=== PATIENT | female | born 1985 | race Caucasian/White ===

== ENCOUNTER → 2023-08-17 10:51 | Outpatient (CLI) | payer OTHER, MEDICAID, SELFPAY | PROVIDERS: PCP Nurse Practitioner Obstetrics & Gynecology; Visit Provider Obstetrics & Gynecology | DX: L73.1 Pseudofolliculitis barbae (principal) | CPT/HCPCS: 87070; 87077; 87147; 87186; 87205 ==

== ENCOUNTER → 2023-10-10 16:20 | Outpatient (CLI) | payer OTHER, MEDICAID, SELFPAY ==
--- NOTE | 2023-10-10 16:22 | DI.US.S_ITS ---
PROCEDURE: US OB >= 14 WEEKS FETUS INDICATIONS: ANATOMY SCAN OUTSIDE/PRIOR DATING DATA: Last menstrual period (LMP): 05/11/2023. LMP-based estimated date of delivery (HARSHAL): 02/15/2024. The calculations are made using the HARSHAL of 02/15/2024. TECHNIQUE: Real-time scanning was performed of the fetus, with image documentation and biometric measurements. Endovaginal scanning: Not performed COMPARISON: [facility], , OB < 14 WEEKS, 08/07/2023, 11:24. FINDINGS: General: A single living intrauterine gestation is present. Presentation: Transverse. Placenta: Placental position is posterior , without previa. Amniotic fluid index: 18.3 cm, normal range is 5-24 cm. Single deepest vertical pocket is 6.9 cm. heart rate: 131 beats per minute. Maternal cervical canal: 7.5 cm long. Normal lower limit is 2.5 cm. biometrics: Biparietal diameter: 5.4 cm, 22 weeks 3 days Head circumference: 20.3 cm, 22 weeks 3 days Abdominal circumference: 18.4 cm, 23 weeks 1 day Femur length: 3.9 cm, 22 weeks 3 days Clinically estimated gestational age: 21 weeks 5 days Composite gestational age from present scan: 22 weeks 4 days Estimated weight and percentile: 534 g, 92nd percentile Anatomic survey: Neuro: Ventricles are non-dilated at less than 10 mm. Cisterna magna is normal at 3-11 mm. Cerebellum is normal in size and morphology. Nuchal skin fold: Normal at less than 6 mm between 14-21 weeks gestational age. Face: Nose and lips, facial profile are normal. Spine: No evidence for spina bifida. Heart: 4-chambered heart is present, with normal ventricular outflow tracts. Diaphragm: Diaphragm is intact. Stomach: Left-sided stomach is present. Kidneys: No hydronephrosis. Normal is less than 5 mm in 2nd trimester, less than 7 mm in 3rd trimester. Cord: 3-vessel cord has orthotopic insertion. Bladder: Normal in size. Extremities: All 4 extremities identified. IMPRESSION: 1. Single live intrauterine consistent with 22 weeks and 4 days. 2. Normal anatomic survey. 3. Estimated weight is at the 92nd percentile. Consider follow-up exam to exclude developing macrosomia. We strive to produce accurate, complete, and clear reports of imaging services. To assist us in improving patient care, this report was composed using standard report templates and voice recognition software. Therefore, it may contain abnormal punctuation, insertions and/or omissions. Occasional wrong-word or sound-alike substitutions may occur. Though we review the report and make efforts to correct it, we do recommend that the report be read carefully in proper context to recognize any text inaccuracies. Dictated by: Nasir Russell M.D. on 10/11/2023 at 10:22 Approved by: Nasir Russell M.D. on 10/11/2023 at 10:30
== END ==
PROVIDERS: PCP Nurse Practitioner Obstetrics & Gynecology; Referring Provider Advanced Practice Midwife; Visit Provider Advanced Practice Midwife
DX: Z34.02 Encounter for supervision of normal first pregnancy, second trimester (principal); Z3A.22 22 weeks gestation of pregnancy
CPT/HCPCS: 76811

== ENCOUNTER → 2023-11-02 07:57 | Outpatient (CLI) | payer OTHER, MEDICAID, SELFPAY ==
[2023-11-02 09:18] LABS: Hemoglobin A1C% w Est Avg Glu 4.9 % (4.0-6.0)
[2023-11-02 10:16] LABS: Glucose 1 Hour 132 mg/dL (70-170)
[2023-11-02 10:18] LABS: Glucose Tol Interpretation INTERPRETATION
[2023-11-02 11:07] LABS: Glucose 2 Hour 140 mg/dL (70-140)
[2023-11-02 13:56] LABS: Glucose Fasting 96 mg/dL (70-100)
== END ==
PROVIDERS: PCP Nurse Practitioner Obstetrics & Gynecology; Referring Provider Advanced Practice Midwife; Visit Provider Advanced Practice Midwife
DX: O13.9 Gestational [pregnancy-induced] hypertension without significant proteinuria, unspecified trimester (principal); F31.9 Bipolar disorder, unspecified; F90.2 Attention-deficit hyperactivity disorder, combined type; O99.810 Abnormal glucose complicating pregnancy
CPT/HCPCS: 36415; 82951; 82952; 83036

== ENCOUNTER → 2023-11-26 10:00 | Outpatient (CLI) | payer OTHER, MEDICAID, SELFPAY ==
[2023-11-26 13:27] LABS: Cholesterol 312 mg/dL (140-199); HDL Cholesterol 70 mg/dL (40-60); LDL Cholesterol Calculated 203 mg/dL (<100); Triglycerides 197 mg/dL (35-150)
== END ==
PROVIDERS: Referring Provider Advanced Practice Midwife; Visit Provider Advanced Practice Midwife
DX: O99.810 Abnormal glucose complicating pregnancy (principal); O13.9 Gestational [pregnancy-induced] hypertension without significant proteinuria, unspecified trimester; F31.0 Bipolar disorder, current episode hypomanic; F90.2 Attention-deficit hyperactivity disorder, combined type; E03.9 Hypothyroidism, unspecified
CPT/HCPCS: 36415; 80061; 80175

== ENCOUNTER 2024-01-02 12:46 | Outpatient (CLI) | payer OTHER, MEDICAID, SELFPAY ==
--- NOTE | 2024-01-02 13:21 | PM.OBTRLD ---
Visit Information Visit Information Date of evaluation: 01/02/24 Primary OB Provider: Esther Rao Comments/Additional reasons for admission: 38yo at 33w5d here for NST for decreased movement. No contractions, LOF, vaginal bleeding. complicated by bipolar disorder, GDMA2 on insulin. [facility] Medical History (Updated 01/02/24 @ 13:23 by Esther Rao MD) Psychiatric hospitalization Hypertension (~2021) Hemorrhoid Surgical History (Updated 12/27/23 @ 13:28 by Hattie Rosenbaum, RN) Anesthesia History of colonoscopy Family History (Updated 12/27/23 @ 13:31 by Hattie Rosenbaum, RN) Mother Hypertension Pre-diabetes Skin cancer Father Hypertension Skin cancer Alcoholism Grandfather Liver cancer Heavy smoker Grandmother COPD (chronic obstructive pulmonary disease) Heavy smoker Grandfather No problems noted. 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[employer]) current occupational exposures/hazards: No special dwain needs: No travel history: over 6 months ago seatbelt use: always helmet use: No (counseled on this matter) water heater temp set < 120 deg: Yes working smoke detector in home: Yes fire extinguisher in home: Yes carbon monox detector in home: Yes firearms in home: Yes firearms unloaded and locked: Yes do you feel safe at home: Yes Smoking Status: Former smoker (quit age 30 when she quit drinking) Tobacco: How many years used: 10 second hand exposure: No alcohol intake: former (sober since 2016) substance use type: does not use during the past year weight has: other (gained ~90 lb w/ last , lost 50 prior to this one) well-balanced diet: daily or most days daily servings fruits/ve-4 caffeine: Yes (single K-cup coffee in AM) Type(s) of exercise: walking Evaluation Evaluation Baseline heart rate: 120 Variability: Moderate (11-25) monitor accelerations: Present Monitor Decelerations: Absent Category of Tracing: Reactive Diagnosis, Plan/Disposition Final Diagnosis (1) Decreased movement: Status: Acute Plan/Disposition Plan: 38yo at 33w5d here for NST for decreased movement. NST reactive. Stable for d/c home. Will f/u for twice weekly NSTs due to GDMA2. OB Disposition: home
== END 2024-01-02 13:25 | disposition home or self-care (01) ==
LOC: LABOR 13:01 → OB 01-03 08:16
PROVIDERS: Referring Provider Family Medicine; Visit Provider Family Medicine
DX: O36.8130 Decreased fetal movements, third trimester, not applicable or unspecified (principal); O24.414 Gestational diabetes mellitus in pregnancy, insulin controlled; O99.343 Other mental disorders complicating pregnancy, third trimester; F31.9 Bipolar disorder, unspecified; Z3A.33 33 weeks gestation of pregnancy
CPT/HCPCS: 59025; G0378; G0379

== ENCOUNTER → 2024-01-04 14:37 | Outpatient (CLI) | payer OTHER, MEDICAID, SELFPAY ==
--- NOTE | 2024-01-04 14:38 | DI.US.S_ITS ---
PROCEDURE: US OB LIMITED INDICATIONS: EFW OUTSIDE/PRIOR DATING DATA: Last menstrual period (LMP): 05/11/2023 LMP-based estimated date of delivery (HARSHAL): 02/15/2024 Working HARSHAL is 02/15/2024 TECHNIQUE: Real-time scanning was performed of the fetus, with image documentation and biometric measurements. Endovaginal scanning: Not performed COMPARISON: [facility], OB >= 14 WEEKS FETUS, 10/10/2023, 16:37. FINDINGS: General: A single living intrauterine gestation is present. Presentation: Vertex Placenta: Placental position is posterior right, without previa. Amniotic fluid index: 22.5 cm, normal range is 5-24 cm. Single deepest vertical pocket is 7.3 cm. heart rate: 132 beats per minute. Maternal cervical canal: Not visualized. biometrics: Biparietal diameter: 8.8 cm, 35 weeks 5 days Head circumference: 32.1 cm, 36 weeks 1 day Abdominal circumference: 31.4 cm, 35 weeks 2 days Femur length: 6.8 cm, 34 weeks 6 days Clinically estimated gestational age: 34 weeks 0 days Composite gestational age from present scan: 35 weeks 4 days Estimated weight and percentile: 2657 g, 82nd percentile IMPRESSION: 1. Single live intrauterine with interval growth. 2. Estimated weight is at the 82nd percentile for gestational age. 3. Amniotic fluid index is at the upper limits of normal at 22.5 cm. Approved by: Richie Ramirez M.D. on 01/04/2024 at 20:16
== END ==
PROVIDERS: Referring Provider Family Medicine; Visit Provider Family Medicine
DX: O24.419 Gestational diabetes mellitus in pregnancy, unspecified control (principal); O09.293 Supervision of pregnancy with other poor reproductive or obstetric history, third trimester; Z3A.35 35 weeks gestation of pregnancy
CPT/HCPCS: 76815

== ENCOUNTER 2024-01-07 10:46 | Outpatient (CLI) | payer OTHER, MEDICAID, SELFPAY | END 2024-01-07 11:40 | disposition home or self-care (01) | LOC: LABOR 11:00 → OB 01-09 10:28 | PROVIDERS: Referring Provider Family Medicine; Visit Provider Family Medicine | DX: O26.893 Other specified pregnancy related conditions, third trimester (principal); R06.02 Shortness of breath; O09.523 Supervision of elderly multigravida, third trimester; O24.913 Unspecified diabetes mellitus in pregnancy, third trimester; Z79.4 Long term (current) use of insulin; Z3A.34 34 weeks gestation of pregnancy | CPT/HCPCS: 59025; G0378; G0379 ==

== ENCOUNTER 2024-01-10 12:35 | Outpatient (CLI) | payer OTHER, MEDICAID, SELFPAY | END 2024-01-10 13:30 | disposition home or self-care (01) | LOC: LABOR 13:32 → OB 01-17 09:57 | PROVIDERS: Referring Provider Family Medicine; Visit Provider Family Medicine | DX: O09.523 Supervision of elderly multigravida, third trimester (principal); O24.913 Unspecified diabetes mellitus in pregnancy, third trimester; Z79.4 Long term (current) use of insulin; O99.513 Diseases of the respiratory system complicating pregnancy, third trimester; J45.909 Unspecified asthma, uncomplicated; Z3A.34 34 weeks gestation of pregnancy; O09.293 Supervision of pregnancy with other poor reproductive or obstetric history, third trimester; O99.280 Endocrine, nutritional and metabolic diseases complicating pregnancy, unspecified trimester; E03.9 Hypothyroidism, unspecified | CPT/HCPCS: 59025; 84439; 84443; 86850; 86870; 86900; 86901; G0378; G0379 ==

== ENCOUNTER → 2024-01-10 12:38 | Outpatient (CLI) | payer OTHER, MEDICAID, SELFPAY ==
[2024-01-10 15:59] LABS: Free T4, Direct Thyroxine 0.55 ng/dL (0.78-2.19)
[2024-01-10 16:13] LABS: Thyroid Stimulating Hormone 1.16 uIU/mL (0.47-4.68)
== END ==
LOC: LAB 12:38
PROVIDERS: Referring Provider Family Medicine; Visit Provider Family Medicine
DX: O09.293 Supervision of pregnancy with other poor reproductive or obstetric history, third trimester (principal); O99.280 Endocrine, nutritional and metabolic diseases complicating pregnancy, unspecified trimester; E03.9 Hypothyroidism, unspecified
CPT/HCPCS: 84439; 84443; 86850; 86870; 86900; 86901

== ENCOUNTER 2024-01-14 11:13 | Observation (INO) | payer OTHER, MEDICAID, SELFPAY ==
--- NOTE | 2024-01-14 12:02 | P.TNLD_ITS ---
Visit Information Visit Information Date of evaluation: 01/14/24 Primary OB Provider: Esther Rao Comments/Additional reasons for admission: 38yo at 35w3d here for NST for GDMA2. No vaginal bleeding, contractions. She has felt some fluid leaking recently. She is feeling her baby move regularly. [facility] Medical History (Updated 01/14/24 @ 14:30 by Esther Rao MD) Psychiatric hospitalization Hypertension (~2021) Hemorrhoid Surgical History (Updated 12/27/23 @ 13:28 by Hattie Rosenbaum, RN) Anesthesia History of colonoscopy Family History (Updated 12/27/23 @ 13:31 by Hattie Rosenbaum, RN) Mother Hypertension Pre-diabetes Skin cancer Father Hypertension Skin cancer Alcoholism Grandfather Liver cancer Heavy smoker Grandmother COPD (chronic obstructive pulmonary disease) Heavy smoker Grandfather No problems noted. 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[employer]) current occupational exposures/hazards: No special dwain needs: No travel history: over 6 months ago seatbelt use: always helmet use: No (counseled on this matter) water heater temp set < 120 deg: Yes working smoke detector in home: Yes fire extinguisher in home: Yes carbon monox detector in home: Yes firearms in home: Yes firearms unloaded and locked: Yes do you feel safe at home: Yes Smoking Status: Former smoker (quit age 30 when she quit drinking) Tobacco: How many years used: 10 second hand exposure: No alcohol intake: former (sober since 2016) substance use type: does not use during the past year weight has: other (gained ~90 lb w/ last , lost 50 prior to this one) well-balanced diet: daily or most days daily servings fruits/ve-4 caffeine: Yes (single K-cup coffee in AM) Type(s) of exercise: walking Evaluation Evaluation Baseline heart rate: 140 Variability: Moderate (11-25) monitor accelerations: Present Monitor Decelerations: Absent Category of Tracing: Reactive Non-invasive Membranes Rupture Test: negative Diagnosis, Plan/Disposition Final Diagnosis (1) Gestational diabetes mellitus: Status: Acute Plan/Disposition Plan: 38yo at 35w3d here for NST for GDMA2. Amniosure negative. NST reactive. Stable for d/c home. F/U for ongoing testing. OB Disposition: home
== END 2024-01-14 12:06 | disposition home or self-care (01) ==
PROVIDERS: Admitting Provider Family Medicine; Referring Provider Family Medicine; Visit Provider Family Medicine
DX: Z03.71 Encounter for suspected problem with amniotic cavity and membrane ruled out (principal); O24.414 Gestational diabetes mellitus in pregnancy, insulin controlled; Z3A.35 35 weeks gestation of pregnancy
CPT/HCPCS: 59025; 84112; G0378; G0379

== ENCOUNTER → 2024-01-16 11:06 | Outpatient (CLI) | payer OTHER, MEDICAID, SELFPAY ==
[2024-01-17 15:36] LABS: Strep Grp B PCR NEG for Grp B Strep
== END ==
PROVIDERS: Visit Provider Family Medicine
DX: O09.299 Supervision of pregnancy with other poor reproductive or obstetric history, unspecified trimester (principal)
CPT/HCPCS: 87653

== ENCOUNTER 2024-01-16 11:40 | Outpatient (CLI) | payer OTHER, MEDICAID, SELFPAY ==
--- NOTE | 2024-01-16 12:16 | P.TNLD_ITS ---
Visit Information Visit Information Date of evaluation: 01/16/24 Primary OB Provider: Esther Rao Comments/Additional reasons for admission: 38yo at 35w5d here for NST for GDMA2. No vaginal bleeding, LOF, contractions. Feeling baby move regularly. [facility] Medical History (Updated 01/16/24 @ 09:44 by Esther Rao MD) Psychiatric hospitalization Hypertension (~2021) Hemorrhoid Surgical History (Updated 12/27/23 @ 13:28 by Hattie Rosenbaum, RN) Anesthesia History of colonoscopy Family History (Updated 12/27/23 @ 13:31 by Hattie Rosenbaum, RN) Mother Hypertension Pre-diabetes Skin cancer Father Hypertension Skin cancer Alcoholism Grandfather Liver cancer Heavy smoker Grandmother COPD (chronic obstructive pulmonary disease) Heavy smoker Grandfather No problems noted. 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[employer]) current occupational exposures/hazards: No special dwain needs: No travel history: over 6 months ago seatbelt use: always helmet use: No (counseled on this matter) water heater temp set < 120 deg: Yes working smoke detector in home: Yes fire extinguisher in home: Yes carbon monox detector in home: Yes firearms in home: Yes firearms unloaded and locked: Yes do you feel safe at home: Yes Smoking Status: Former smoker (quit age 30 when she quit drinking) Tobacco: How many years used: 10 second hand exposure: No alcohol intake: former (sober since 2016) substance use type: does not use during the past year weight has: other (gained ~90 lb w/ last , lost 50 prior to this one) well-balanced diet: daily or most days daily servings fruits/ve-4 caffeine: Yes (single K-cup coffee in AM) Type(s) of exercise: walking Evaluation Evaluation Baseline heart rate: 140 Variability: Moderate (11-25) monitor accelerations: Present Monitor Decelerations: Absent Category of Tracing: Reactive Diagnosis, Plan/Disposition Final Diagnosis (1) Gestational diabetes mellitus: Status: Acute Plan/Disposition Plan: 38yo at 35w3d here for NST for GDMA2. NST reactive. Stable for d/c home. F/U for ongoing testing. OB Disposition: home
== END 2024-01-16 12:18 | disposition home or self-care (01) ==
LOC: OB 01-17 10:00
PROVIDERS: Referring Provider Family Medicine; Visit Provider Family Medicine
DX: O24.414 Gestational diabetes mellitus in pregnancy, insulin controlled (principal); O09.293 Supervision of pregnancy with other poor reproductive or obstetric history, third trimester; Z3A.35 35 weeks gestation of pregnancy
CPT/HCPCS: 59025; 87653; G0378; G0379

== ENCOUNTER 2024-01-21 10:57 | Outpatient (CLI) | payer OTHER, MEDICAID, SELFPAY ==
--- NOTE | 2024-01-21 11:32 | P.TNLD_ITS ---
Visit Information Visit Information Date of evaluation: 01/21/24 Primary OB Provider: Esther Rao Comments/Additional reasons for admission: 38yo at 36w3d here for NST for GDMA2. No vaginal bleeding, LOF, contractions. Feeling baby move regularly. Is having some discomfort with urination. No flank pain, fevers. [facility] Medical History (Updated 01/21/24 @ 12:19 by Esther Rao MD) Psychiatric hospitalization Hypertension (~2021) Hemorrhoid Surgical History (Updated 12/27/23 @ 13:28 by Hattie Rosenbaum, RN) Anesthesia History of colonoscopy Family History (Updated 12/27/23 @ 13:31 by Hattie Rosenbaum, RN) Mother Hypertension Pre-diabetes Skin cancer Father Hypertension Skin cancer Alcoholism Grandfather Liver cancer Heavy smoker Grandmother COPD (chronic obstructive pulmonary disease) Heavy smoker Grandfather No problems noted. 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[employer]) current occupational exposures/hazards: No special dwain needs: No travel history: over 6 months ago seatbelt use: always helmet use: No (counseled on this matter) water heater temp set < 120 deg: Yes working smoke detector in home: Yes fire extinguisher in home: Yes carbon monox detector in home: Yes firearms in home: Yes firearms unloaded and locked: Yes do you feel safe at home: Yes Smoking Status: Former smoker (quit age 30 when she quit drinking) Tobacco: How many years used: 10 second hand exposure: No alcohol intake: former (sober since 2016) substance use type: does not use during the past year weight has: other (gained ~90 lb w/ last , lost 50 prior to this one) well-balanced diet: daily or most days daily servings fruits/ve-4 caffeine: Yes (single K-cup coffee in AM) Type(s) of exercise: walking Evaluation Evaluation Baseline heart rate: 120 Variability: Moderate (11-25) monitor accelerations: Present Monitor Decelerations: Absent Category of Tracing: Reactive Diagnosis, Plan/Disposition Final Diagnosis (1) 36 weeks gestation of : Status: Acute (2) Gestational diabetes mellitus: Status: Acute Plan/Disposition Plan: 38yo at 36w3d here for NST for GDMA2. NST reactive. U/A sent for mild dysuria. Continue testing, f/u appt scheduled. OB Disposition: home
[2024-01-21 11:55] LABS: Appearance Urine UA CLEAR; Bilirubin Urine UA NEGATIVE (NEGATIVE); Color Urine UA YELLOW; Glucose Urine UA NEGATIVE (Negative); Ketones Urine UA NEGATIVE (NEGATIVE); Leukocyte Esterase Urine UA NEGATIVE (NEGATIVE); Nitrite Urine UA NEGATIVE (Negative); Occult Blood Urine UA NEGATIVE (Negative); Protein Urine UA NEGATIVE (Negative); Specific Gravity Urine UA <=1.005 (1.000-1.035); Urobilinogen Urine UA 0.2 E.U./dL (0.2)
[2024-01-21 11:56] LABS: Urine Volume 10mL (spun); pH Urine UA 5.5 (4.5-8.0)
[2024-01-21 11:57] LABS: Bacteria Urine None Seen; RBC Urine None Seen (0-5/HPF); Squamous Epithelial Cell Urine 1-5 /HPF (0-5/HPF); WBC Urine None Seen (0-5/HPF)
[2024-01-21 11:58] LABS: Culture Indicated Urine Cult Not Indicated
== END 2024-01-21 11:45 | disposition home or self-care (01) ==
LOC: LABOR 11:52 → OB 01-23 09:59
PROVIDERS: Referring Provider Family Medicine; Visit Provider Family Medicine
DX: O24.414 Gestational diabetes mellitus in pregnancy, insulin controlled (principal); O99.891 Other specified diseases and conditions complicating pregnancy; R30.0 Dysuria; Z3A.36 36 weeks gestation of pregnancy
CPT/HCPCS: 59025; 81001; G0378; G0379

== ENCOUNTER 2024-01-23 15:41 | Observation (INO) | payer OTHER, MEDICAID, SELFPAY ==
--- NOTE | 2024-01-23 16:31 | P.TNLD_ITS ---
Visit Information Visit Information Date of evaluation: 01/23/24 Primary OB Provider: Esther Rao Comments/Additional reasons for admission: 38yo at 36w5d here due to abdominal cramping, pelvic pain. She is feeling her baby move regularly. She continues to have increased vaginal discharge, but no change in amount of fluid present. No vaginal bleeding. Pain has been getting progressively worse, up to 8-9/10 on the pain scale. Not intermittent like contractions, more constant. Located low in pelvis. Pt also notes that her mood has been worsening. She did f/u with psychiatry this morning. [facility] Medical History (Updated 01/23/24 @ 16:37 by Esther Rao MD) Psychiatric hospitalization Hypertension (~2021) Hemorrhoid Surgical History (Updated 12/27/23 @ 13:28 by Hattie Rosenbaum, RN) Anesthesia History of colonoscopy Family History (Updated 12/27/23 @ 13:31 by Hattie Rosenbaum RN) Mother Hypertension Pre-diabetes Skin cancer Father Hypertension Skin cancer Alcoholism Grandfather Liver cancer Heavy smoker Grandmother COPD (chronic obstructive pulmonary disease) Heavy smoker Grandfather No problems noted. 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[employer]) current occupational exposures/hazards: No special dwain needs: No travel history: over 6 months ago seatbelt use: always helmet use: No (counseled on this matter) water heater temp set < 120 deg: Yes working smoke detector in home: Yes fire extinguisher in home: Yes carbon monox detector in home: Yes firearms in home: Yes firearms unloaded and locked: Yes do you feel safe at home: Yes Smoking Status: Former smoker (quit age 30 when she quit drinking) Tobacco: How many years used: 10 second hand exposure: No alcohol intake: former (sober since 2016) substance use type: does not use during the past year weight has: other (gained ~90 lb w/ last , lost 50 prior to this one) well-balanced diet: daily or most days daily servings fruits/ve-4 caffeine: Yes (single K-cup coffee in AM) Type(s) of exercise: walking Evaluation Evaluation Baseline heart rate: 130 Variability: Moderate (11-25) monitor accelerations: Present Monitor Decelerations: Absent Category of Tracing: Reactive Diagnosis, Plan/Disposition Final Diagnosis (1) Pain in symphysis pubis during : Status: Acute (2) 36 weeks gestation of : Status: Acute Plan/Disposition Plan: 38yo at 36w5d here due to abdominal cramping, pelvic pain. The pt was evaluated in the [facility] ED and then sent here for additional eval. No contractions on monitoring. Pain more consistent with pubic symphysis separation. Discussed Tylenol, heat, stretching, support belts. Given single dose of Morphine here to help her rest. NST reactive. Pt to f/u in 2 days in clinic as scheduled.
[2024-01-23] MEDS: MORPHINE 4 MG/ML INJ IM (16:44)
== END 2024-01-23 16:48 | disposition home or self-care (01) ==
PROVIDERS: Admitting Provider Family Medicine; Referring Provider Family Medicine; Visit Provider Family Medicine
DX: O26.893 Other specified pregnancy related conditions, third trimester (principal); R10.2 Pelvic and perineal pain; R10.9 Unspecified abdominal pain; N89.8 Other specified noninflammatory disorders of vagina; Z3A.36 36 weeks gestation of pregnancy
CPT/HCPCS: 59025; 96372; G0378; G0379; J2270

== ENCOUNTER 2024-01-25 11:52 | Outpatient (CLI) | payer OTHER, MEDICAID, SELFPAY ==
--- NOTE | 2024-01-25 12:36 | P.TNLD_ITS ---
Visit Information Visit Information Date of evaluation: 01/25/24 Primary OB Provider: Esther Rao Comments/Additional reasons for admission: 38yo at 37w0d here for NST for GDMA2 PFSH Medical History (Updated 01/25/24 @ 10:50 by Esther Rao MD) Psychiatric hospitalization Hypertension (~2021) Hemorrhoid Surgical History (Updated 12/27/23 @ 13:28 by Hattie Rosenbaum, RN) Anesthesia History of colonoscopy Family History (Updated 12/27/23 @ 13:31 by Hattie Rosenbaum, RN) Mother Hypertension Pre-diabetes Skin cancer Father Hypertension Skin cancer Alcoholism Grandfather Liver cancer Heavy smoker Grandmother COPD (chronic obstructive pulmonary disease) Heavy smoker Grandfather No problems noted. 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[employer]) current occupational exposures/hazards: No special dwain needs: No travel history: over 6 months ago seatbelt use: always helmet use: No (counseled on this matter) water heater temp set < 120 deg: Yes working smoke detector in home: Yes fire extinguisher in home: Yes carbon monox detector in home: Yes firearms in home: Yes firearms unloaded and locked: Yes do you feel safe at home: Yes Smoking Status: Former smoker (quit age 30 when she quit drinking) Tobacco: How many years used: 10 second hand exposure: No alcohol intake: former (sober since 2016) substance use type: does not use during the past year weight has: other (gained ~90 lb w/ last , lost 50 prior to this one) well-balanced diet: daily or most days daily servings fruits/ve-4 caffeine: Yes (single K-cup coffee in AM) Type(s) of exercise: walking Evaluation Evaluation Baseline heart rate: 125 Variability: Moderate (11-25) monitor accelerations: Present Monitor Decelerations: Absent Category of Tracing: Reactive Diagnosis, Plan/Disposition Plan/Disposition Plan: 38yo at 37w0d here for NST for GDMA2. NST reactive. Stable for d/c home. Continue testing. OB Disposition: home
== END 2024-01-25 13:25 | disposition home or self-care (01) ==
LOC: LABOR 13:26 → OB 01-28 10:33
PROVIDERS: Referring Provider Family Medicine; Visit Provider Family Medicine
DX: O24.414 Gestational diabetes mellitus in pregnancy, insulin controlled (principal); Z3A.37 37 weeks gestation of pregnancy
CPT/HCPCS: 59025; G0378; G0379

== ENCOUNTER 2024-01-28 10:59 | Observation (INO) | payer OTHER, MEDICAID, SELFPAY ==
--- NOTE | 2024-01-28 11:29 | P.TNLD_ITS ---
Visit Information Visit Information Date of evaluation: 01/28/24 Primary OB Provider: Esther Rao Comments/Additional reasons for admission: 38yo at 37w3d here for NST for GDMA2. [facility] Medical History (Updated 01/25/24 @ 10:50 by Esther Rao MD) Psychiatric hospitalization Hypertension (~2021) Hemorrhoid Surgical History (Updated 12/27/23 @ 13:28 by Hattie Rosenbaum, RN) Anesthesia History of colonoscopy Family History (Updated 12/27/23 @ 13:31 by Hattie Rosenbaum, RN) Mother Hypertension Pre-diabetes Skin cancer Father Hypertension Skin cancer Alcoholism Grandfather Liver cancer Heavy smoker Grandmother COPD (chronic obstructive pulmonary disease) Heavy smoker Grandfather No problems noted. 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[employer]) current occupational exposures/hazards: No special dwain needs: No travel history: over 6 months ago seatbelt use: always helmet use: No (counseled on this matter) water heater temp set < 120 deg: Yes working smoke detector in home: Yes fire extinguisher in home: Yes carbon monox detector in home: Yes firearms in home: Yes firearms unloaded and locked: Yes do you feel safe at home: Yes Smoking Status: Former smoker (quit age 30 when she quit drinking) Tobacco: How many years used: 10 second hand exposure: No alcohol intake: former (sober since 2016) substance use type: does not use during the past year weight has: other (gained ~90 lb w/ last , lost 50 prior to this one) well-balanced diet: daily or most days daily servings fruits/ve-4 caffeine: Yes (single K-cup coffee in AM) Type(s) of exercise: walking Evaluation Evaluation Baseline heart rate: 150 Variability: Moderate (11-25) monitor accelerations: Present Monitor Decelerations: Absent Category of Tracing: Reactive Diagnosis, Plan/Disposition Plan/Disposition Plan: 38yo at 37w3d here for NST for GDMA2. NST reactive. Stable for discharge home. Continue testing. OB Disposition: home
== END 2024-01-28 11:30 | disposition home or self-care (01) ==
PROVIDERS: Admitting Provider Family Medicine; Referring Provider Family Medicine; Visit Provider Family Medicine
DX: O24.414 Gestational diabetes mellitus in pregnancy, insulin controlled (principal); Z3A.37 37 weeks gestation of pregnancy
CPT/HCPCS: 59025; G0378; G0379

== ENCOUNTER 2024-01-30 11:28 | Observation (INO) | payer OTHER, MEDICAID, SELFPAY | END 2024-01-30 12:01 | disposition home or self-care (01) | LOC: LABOR 11:30 | PROVIDERS: Admitting Provider Family Medicine; Referring Provider Family Medicine; Visit Provider Family Medicine | DX: O09.523 Supervision of elderly multigravida, third trimester (principal); O24.913 Unspecified diabetes mellitus in pregnancy, third trimester; Z79.4 Long term (current) use of insulin; O99.513 Diseases of the respiratory system complicating pregnancy, third trimester; J45.909 Unspecified asthma, uncomplicated; Z3A.37 37 weeks gestation of pregnancy | CPT/HCPCS: 59025; G0378; G0379 ==

== ENCOUNTER 2024-01-30 19:08 | Outpatient (CLI) | payer OTHER, MEDICAID, SELFPAY ==
[2024-01-30] MEDS: MORPHINE 4 MG/ML INJ 5 MG IM (20:24)
== END 2024-01-30 20:33 | disposition home or self-care (01) ==
LOC: OB 02-04 06:51
PROVIDERS: Referring Provider Family Medicine; Visit Provider Family Medicine
DX: O47.1 False labor at or after 37 completed weeks of gestation (principal); R10.2 Pelvic and perineal pain; O26.893 Other specified pregnancy related conditions, third trimester; Z3A.37 37 weeks gestation of pregnancy; O09.523 Supervision of elderly multigravida, third trimester; O24.913 Unspecified diabetes mellitus in pregnancy, third trimester; Z79.4 Long term (current) use of insulin; O99.513 Diseases of the respiratory system complicating pregnancy, third trimester; J45.909 Unspecified asthma, uncomplicated
CPT/HCPCS: 59025; 96372; G0378; G0379; J2270

== ENCOUNTER 2024-02-04 10:43 | Observation (INO) | payer OTHER, MEDICAID, SELFPAY ==
--- NOTE | 2024-02-04 11:51 | P.TNLD_ITS ---
Visit Information Visit Information Date of evaluation: 02/04/24 Primary OB Provider: Esther Rao Comments/Additional reasons for admission: 38yo at 38w3d here for NST for GDMA2. Pt ran out of her insulin Sunday evening. REPLACED BY [facility] Medical History (Updated 01/25/24 @ 10:50 by Esther Rao MD) Psychiatric hospitalization Hypertension (~2021) Hemorrhoid Surgical History (Updated 12/27/23 @ 13:28 by Hattie Rosenbaum, RN) Anesthesia History of colonoscopy Family History (Updated 12/27/23 @ 13:31 by Hattie Rosenbaum, RN) Mother Hypertension Pre-diabetes Skin cancer Father Hypertension Skin cancer Alcoholism Grandfather Liver cancer Heavy smoker Grandmother COPD (chronic obstructive pulmonary disease) Heavy smoker Grandfather No problems noted. 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[employer]) current occupational exposures/hazards: No special dwain needs: No travel history: over 6 months ago seatbelt use: always helmet use: No (counseled on this matter) water heater temp set < 120 deg: Yes working smoke detector in home: Yes fire extinguisher in home: Yes carbon monox detector in home: Yes firearms in home: Yes firearms unloaded and locked: Yes do you feel safe at home: Yes Smoking Status: Former smoker (quit age 30 when she quit drinking) Tobacco: How many years used: 10 second hand exposure: No alcohol intake: former (sober since 2016) substance use type: does not use during the past year weight has: other (gained ~90 lb w/ last , lost 50 prior to this one) well-balanced diet: daily or most days daily servings fruits/ve-4 caffeine: Yes (single K-cup coffee in AM) Type(s) of exercise: walking Evaluation Evaluation Baseline heart rate: 140 Variability: Moderate (11-25) monitor accelerations: Present Monitor Decelerations: Absent Category of Tracing: Reactive Diagnosis, Plan/Disposition Final Diagnosis (1) Gestational diabetes mellitus: Status: Acute Plan/Disposition Plan: 38yo at 38w3d here for NST for GDMA2. NST reactive. Stable for discharge home. IOL tomorrow. Switch to NPH insulin for tonight. OB Disposition: home
== END 2024-02-04 12:05 | disposition home or self-care (01) ==
PROVIDERS: Admitting Provider Family Medicine; Referring Provider Family Medicine; Visit Provider Family Medicine
DX: O24.414 Gestational diabetes mellitus in pregnancy, insulin controlled (principal); Z3A.38 38 weeks gestation of pregnancy
CPT/HCPCS: 59025; G0378; G0379

== ENCOUNTER 2024-02-05 19:25 | Inpatient (IN) | payer OTHER, MEDICAID, SELFPAY ==
[2024-02-05 19:33] VITALS: BP 125/69
[2024-02-05 20:54] LABS: Add Manual Diff / Slide Review NO; Basophils Absolute Auto 0 /uL (0-100); Basophils Percent Auto 0.2 % (0-2); Eosinophils Absolute Auto 200 /uL (0-450); Eosinophils Percent Auto 2.1 % (2-4); Hematocrit 38.9 % (36-46); Hemoglobin 12.9 g/dL (12.0-16.0); Lymphocytes Absolute Auto 2300 /uL (1100-4500); Lymphocytes Percent Auto 19.3 % (25-40); Mean Corpuscular HGB Conc 33.3 % (30-36); Mean Corpuscular Hemoglobin 31.8 PG (26-34); Mean Corpuscular Volume 95.4 fL (80-100); Monocytes Absolute Auto 900 /uL (0-900); Neutrophils Absolute Auto 8200 /uL (1500-7000); Neutrophils Percent Auto 70.4 % (50-75); Platelet Count 262 X10^3/uL (150-400); Red Blood Cell Count 4.08 X10^6/uL (4.0-5.2); Red Cell Distribution Width 14.5 % (11.6-14.8); White Blood Cell Count 11.7 X10^3/uL (4.5-11.0)
[2024-02-05] MEDS: miSOPROStoL 25 MCG TABLET 50 MCG PO (21:23)
[2024-02-06] MEDS: miSOPROStoL 25 MCG TABLET 50 MCG PO ×2 (01:26→05:30)
[2024-02-06] MEDS: fentaNYL 100 MCG/2 ML INJ 50 MCG IV ×3 (04:39→06:47)
[2024-02-06] MEDS: ONDANSETRON 4 MG/2 ML INJ IV (07:39)
[2024-02-06] MEDS: SODIUM CHLORIDE 0.9% 1,000 ML 100 ML IV ×2 (08:15→09:10)
--- NOTE | 2024-02-06 09:06 | PM.OBHP.IH.1 ---
OB HPI Date/Time Date of admission: 02/05/24 Date Patient Seen: 02/06/24 History of Present Condition Chief complaint: induction HARSHAL Calculator Estimated Delivery Date Method Current WG Current Estimate 02/15/24 LMP (Certain) 38w 5d Estimated Gestational Age (weeks): 38w5d : 2 Para: 1 Narrative: Pt is a at 38w5d here for IOL due to GDMA2, AMA. The pt denies any vaginal bleeding, LOF. She started lita last night around 1am after receiving cytotec. She continues to feel her baby move regularly. The pts was complicated by GDMA2 on 64 units of NPH 70/30 qPM with reassuring testing, and last growth u/s 01/03 at the 82nd percentile. She has bipolar disorder, stable on Seroquel and Lamictal. Her hypothyroidism is well controlled on Levothyroxine. She also has asthma with frequent flares during , on Flovent. She is on carbidopa-levodopa for restless leg syndrome. The pt is AMA with negative cfDNA. care: good care Dating criteria OB: LMP confirmed by 1st trimester US Ultrasounds: normal 1st trimester US and normal mid trimester US Indications Indication for induction OB: gestational diabetes Preadmission Labs Last OB Lab Results: Blood Type O Negative 02/05/24 20:30 Antibody Screen Positive 02/05/24 20:30 Hct 38.9 % (36-46) 02/05/24 20:30 Hgb 12.9 g/dL (12.0-16.0) 02/05/24 20:30 Hemoglobin A1c 4.9 % (4.0-6.0) 11/02/23 08:04 Group B Strep (PCR) Neg for grp b strep 01/16/24 11:06 -: Chlamydia screen: negative, Gonorrhea screen: negative and Urine: negative Genetic Screens: Cell-free DNA: Normal External Labs -: HBsAG: negative, HIV: negative, RPR/VDLR: negative and Urine: negative -: Rubella: immune and Varicella: immune HCAB: negative Prior (ies) Past Pregnancies Del. Date GA/Weeks Labor Lgth Wt Sex Route Outcome Anesthesia Place Delv Breastfeed Preg Comp Name 06/03/22 37.2 12 8 lb 1 oz Male vaginal live - full term epidural [facility] ([facility]rig[facility]) N/A induced hyper- gestational diabetes macrosomia hemorrhage other [place] Delivery Date: 06/03/22 Last Updated by: Hattie Rosenbaum RN 3rd or 4th degree laceration Evaluation Evaluation Baseline heart rate: 130 Variability: Moderate (11-25) monitor accelerations: Present Monitor Decelerations: Absent Contraction Frequency (minutes): 2 Status: Category l PFSH Medical History (Updated 01/25/24 @ 10:50 by Esther Rao MD) Psychiatric hospitalization Hypertension (~2021) Hemorrhoid Surgical History (Updated 12/27/23 @ 13:28 by Hattie Rosenbaum RN) Anesthesia History of colonoscopy Family History (Updated 12/27/23 @ 13:31 by Hattie Rosenbaum RN) Mother Hypertension Pre-diabetes Skin cancer Father Hypertension Skin cancer Alcoholism Grandfather Liver cancer Heavy smoker Grandmother COPD (chronic obstructive pulmonary disease) Heavy smoker Grandfather No problems noted. 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[employer]) current occupational exposures/hazards: No special dwain needs: No travel history: over 6 months ago seatbelt use: always helmet use: No (counseled on this matter) water heater temp set < 120 deg: Yes working smoke detector in home: Yes fire extinguisher in home: Yes carbon monox detector in home: Yes firearms in home: Yes firearms unloaded and locked: Yes do you feel safe at home: Yes Smoking Status: Former smoker Tobacco: How many years used: 10 second hand exposure: No alcohol intake: former (sober since 2016) substance use type: does not use during the past year weight has: other (gained ~90 lb w/ last , lost 50 prior to this one) well-balanced diet: daily or most days daily servings fruits/ve-4 caffeine: Yes (single K-cup coffee in AM) Type(s) of exercise: walking Meds Home Medications and Allergies Home Medications Medication Instructions Recorded Confirmed Type lamotrigine 200 mg tablet 200 mg PO DAILY 08/17/23 02/05/24 History (Lamictal) albuterol sulfate 90 mcg/actuation 2 puff inhalation Q6H PRN 12/27/23 02/05/24 History aerosol inhaler Bronchodilation carbidopa 25 mg-levodopa 100 mg 1 tab PO BEDTIME restless leg 12/27/23 02/05/24 History tablet insulin human U-100 NPH-regulr 1 sliding scale dose SUBCUT 12/27/23 02/06/24 History 70-30 mix 100 unit/mL subcutaneous USEASDIRECTD susp (Humulin 70/30 U-100 Insulin) levothyroxine 150 mcg tablet 150 mcg PO DAILY 12/27/23 02/05/24 History pantoprazole 40 mg tablet,delayed 40 mg PO DAILY 12/27/23 02/05/24 History release promethazine 25 mg tablet 25 mg PO TID PRN Acid Reflux 12/27/23 02/05/24 History quetiapine 400 mg tablet,extended 400 mg PO DAILY 12/27/23 02/05/24 History release 24 hr sumatriptan succinate 50 mg tablet 50 mg PO ONCE 12/27/23 02/05/24 History valacyclovir 500 mg tablet 500 mg PO BID 12/27/23 02/05/24 History fluticasone propionate 250 1 inh inhalation Q12H #60 ea 01/02/24 02/05/24 Rx mcg/actuation blister powder for inhalation insulin NPH-regular 70-30 U-100 42 unit (0.42 mL) SUBCUT DAILY #15 01/02/24 02/06/24 Rx insulin 100 unit/mL subcutaneous mL pen (Humulin 70/30 U-100 KwikPen) pen needle, diabetic 29 gauge x #100 ea 01/08/24 01/30/24 Rx 1/2 (Ultra-Thin II Insulin Pen [place]) insulin NPH isoph U-100 human 100 30 unit (0.3 mL) SUBCUT ONCE #10 mL 02/04/24 02/05/24 Rx unit/mL subcutaneous suspension lamotrigine 25 mg tablet (Lamictal) 25 mg PO DAILY 02/05/24 02/05/24 History Allergies Allergy/AdvReac Type Severity Reaction Status Date / Time prochlorperazine Allergy Severe Hallucinati Verified 02/05/24 19:38 [From Compazine] ng hydromorphone [From Dilaudid] Allergy Intermediate rash Verified 02/05/24 19:38 OB Exam Resp Effort & Inspection: normal respiratory effort Auscultation: clear to auscultation bilaterally Cardio Rate: regular rate Rhythm: regular rhythm Heart Sounds: S1 normal, S2 normal and no murmurs GI Inspection: non-distended Palpation: Yes soft and No tender Presentation: vertex Objective Labs 02/05/24 20:30 Labs: Laboratory Results - last 24 hr 02/05/24 20:30 WBC 11.7 H RBC 4.08 Hgb 12.9 Hct 38.9 MCV 95.4 MCH 31.8 MCHC 33.3 RDW 14.5 Plt Count 262 Neut % (Auto) 70.4 Lymph % (Auto) 19.3 L Benzie % (Auto) 8.0 Eos % (Auto) 2.1 Baso % (Auto) 0.2 Neut # (Auto) 8200 H Lymph # (Auto) 2300 Benzie # (Auto) 900 Eos # (Auto) 200 Baso # (Auto) 0 Blood Type O Negative Antibody Screen Positive Assessment and Plan Assessment and Plan Assessment and Plan narrative: 38yo at 38w5d her for IOL due to GDMA2 and AMA. also complicated by hypothyroidism, bipolar disorder, asthma, and restless leg syndrome. GBS negative, Rh negative (received Rhogam). Blood sugars thus far in acceptable range. Received 3 doses of cytotec overnight, now with regular painful contractions. - Epidural for pain control now - Will check cervix after epidural in place, next steps dependent on exam - FHT reassuring - Continue blood sugar monitoring as per protocol - GBS negative, no prophylaxis indicated - Collect cord blood after delivery for Rh status - No Hemabate due to asthma Time-Based Coding :: [TOTAL MINUTES] spent with patient and on the chart (including review of chart, obtaining history, exam, reviewing outside data, placing orders, documenting exam and treatment plan, and counseling patient) on [DATE].
[2024-02-06] MEDS: ePHEDrine 50 MG/ML VIAL 10 MG IV ×5 (09:53→10:37)
--- NOTE | 2024-02-06 10:11 | P.PCN_ITS ---
Regional Block Pre-procedure Procedure: Continuous Lumbar Epidural for L&D (with dural puncture) Attending OB provider: Esther Rao PMH/ROS narrative: 38yo female in labor at 1 cm, moaning in pain, has received three doses of fentanyl and requests epidural. PSH/Anesthesia history narrative: IDDM, BMI 39.5, severe anxiety, asthma, hypothyroidism. ASA Class: III Labs: Hct 38.9 % (36-46) 02/05/24 20:30 Plt Count 262 X10^3/uL (150-400) 02/05/24 20:30 Medications: Current Medications Generic Name Dose Route Start Last Admin Trade Name Freq PRN Reason Stop Dose Admin Calcium Carbonate 1,000 mg 02/05/24 19:34 Calcium Carbonate 500 Mg Tab PO Q2HR PRN Dyspepsia Carboprost Tromethamine 250 mcg 02/05/24 19:34 Carboprost 250 Mcg/Ml Ampul IM Q90M PRN Bleeding Diphenhydramine HCl 25 mg 02/06/24 09:28 Diphenhydramine 50 Mg/Ml Vial IV Q10M PRN Pruritis Diphenhydramine HCl 25 mg 02/06/24 09:29 Diphenhydramine 50 Mg/Ml Vial IV 02/07/24 09:29 Q3HR PRN PRURITUS Ephedrine Sulfate 10 mg 02/06/24 09:28 Ephedrine 50 Mg/Ml Vial IV Q5M PRN Blood pressure decrease more than 20% of baseline. Fentanyl 50 mcg 02/05/24 19:34 02/06/24 06:47 Fentanyl 100 Mcg/2 Ml Inj IV 50 mcg Q1H PRN Administration Pain, Moderate (4-6) Oxytocin/Lactated Ringer's 30 unit in 500 mls @ 200 mls/hr 02/05/24 19:34 Oxytocin Premix IV CONT PRN Bleeding Protocol Tranexamic Acid 1,000 mg/ 100 mls @ 600 mls/hr 02/05/24 19:34 Sodium Chloride IV NOW PRN Bleeding Sodium Chloride 1,000 mls @ 100 mls/hr 02/06/24 08:14 02/06/24 08:15 Normal Saline 0.9% IV 02/06/24 18:13 100 mls/hr NOW ONE Administration Dextrose 100 mls @ 1,200 mls/hr 02/06/24 08:31 D10w IV PRN PRN Hypoglycemia Sodium Chloride 1,000 mls @ 100 mls/hr 02/06/24 09:00 02/06/24 09:10 Normal Saline 0.9% IV 100 mls/hr CONT [facility] Administration FENT 2MCG/ML BUPIV 0.125% EPI 200 mcg in 100 mls @ 6 mls/hr 02/06/24 09:30 Fentanyl/Bupiv/Ns 2mcg/Ml - 0.125% EPIDURAL CONT [facility] Insulin Human Lispro 0 unit 02/06/24 11:45 Insulin Lispro 100 Unit/Ml 3ml Vial SUBCUT ACHS [facility] Protocol Lidocaine HCl 20 ml 02/05/24 19:34 Lidocaine 1% 20 Ml INJ INTRA-OP PRN Post Delivery Methylergonovine Maleate 0.2 mg 02/05/24 19:34 Methylergonovine 0.2 Mg/Ml Vial IM NOW PRN Bleeding Methylergonovine Maleate 0.2 mg 02/05/24 19:34 Methylergonovine 0.2 Mg Tablet PO Q6HR PRN Heavy Bleeding Metoclopramide HCl 10 mg 02/06/24 09:29 Metoclopramide 10 Mg/2 Ml Inj IV 02/07/24 09:29 Q4H PRN Nausea Mineral Oil 30 ml 02/05/24 19:34 Mineral Oil 30 Ml Udc TOP PRN PRN Version Misoprostol 50 mcg 02/05/24 19:34 02/06/24 05:30 Misoprostol 25 Mcg Tablet PO 50 mcg Q4H PRN Administration cervical ripening Misoprostol 400 mcg 02/05/24 19:34 Misoprostol 200 Mcg Tablet SL NOW PRN Bleeding Misoprostol 800 mcg 02/05/24 19:34 Misoprostol 200 Mcg Tablet LA NOW PRN Bleeding Nalbuphine HCl 2.5 mg 02/06/24 09:28 Nalbuphine 20 Mg/Ml Ampul IV Q10M PRN Pruritis Naloxone HCl 0.2 mg 02/05/24 19:34 Naloxone 0.4 Mg/Ml Vial IV Q2MIN PRN Opiate Reversal Ondansetron HCl 4 mg 02/05/24 19:34 02/06/24 07:39 Ondansetron 4 Mg/2 Ml Inj IV 4 mg Q4HR PRN Administration Nausea And Vomiting Oxytocin 10 unit 02/05/24 19:34 Oxytocin 10 Unit/Ml Vial IM NOW PRN Bleeding Allergies: Allergies Allergy/AdvReac Type Severity Reaction Status Date / Time prochlorperazine Allergy Severe Hallucinati Verified 02/05/24 19:38 [From Compazine] ng hydromorphone [From Dilaudid] Allergy Intermediate rash Verified 02/05/24 19:38 Procedure Insertion date: 02/06/24 Insertion time: 09:07 Prep/Local: 1% lidocaine (Chloraprep) Interspace: L2-3 Patient position: sitting Needle: 18 gauge Hustead (27g 5 Nehal for dural puncture) Loss of resistance with: saline KLAUDIA at (cm): 7 Catheter placed at SKIN (cm): 15 Catheter in SPACE (cm): 8 Insertion: Yes CSF, No Blood, Yes Paresthesia with insertion, No Paresthesia with injection and No Test dose reaction Initial Medications TEST DOSE time: 09:08 BOLUS DOSE time: 09:09 BOLUS DOSE (mL): 6 BOLUS DOSE med: other (2 ml same as test dose, 4 ml 2% lidocaine PF via epidural catheter) Infusion Initial rate (mL/hr): 8 Subsequent interventions: Epidural pump started at 09:23. Pt reports pain 0/10 with current contraction. 10:06-10:39 - Called back because pt has sensory block to T6-8 but can feel her legs and butt. She is very upset. Epidural bolused with 10 ml 2% lido PF. Infusion increased to 10 ml/hr. Pt's BP dropped to hypotensive range; pt feels nauseated, vomits once, I don't feel well. Stayed at bedside with RN. Giving 500-ml IVF bolus. Total of four additional doses of ephedrine given; pt received two boluses after initial epidural placement. 10:50-11:05 - Pt's back was sweaty at time of epidural placement. Taped epidural catheter as well as I could, but there was a bubble of air at the skin entrance that I couldn't eliminate. When pt rotated to her side, I checked catheter placement. It had worked its way out from 15 to 12.5-13 cm. Replaced dressing sterilely. Chloraprep allowed to dry, then placed Tegaderm; another bubble form at skin entrance. Removed and requested Mastisol and Steri-strips, with which I attempted to secure catheter. It persistently comes off the skin. Secured with Mastisol and Steri-strips as best I could, then small Tegaderm, then large Tegaderm. Appears stable despite tendency for Tegaderm and catheter to curve out off the skin. Pt denies contraction pain currently, reports BLE numb and tingly but able to move B feet. Post-procedure Anesthesia date START: 02/06/24 Anesthesia time START: 08:50 Anesthesia date END: 02/06/24 Anesthesia time END: 23:09 Post-procedure Anesthesia Assessment: Yes CV function: HR/BP stable, Yes Resp function: RR/sat/airway adequate, Yes Post-op hydration adequate, Yes Pain control adequate, Yes Nausea & vomiting absent, Yes Temperature > 36 C, Yes Mental status appropriate and No Anesthesia complications
[2024-02-06] MEDS: OXYTOCIN PREMIX 30 UNIT/500 ML PLAST..BAG IV (11:44)
[2024-02-06] MEDS: INSULIN LISPRO 100 UNIT/ML 3ML VIAL SUBCUT (12:12)
[2024-02-06] MEDS: FENT 2MCG/ML BUPIV 0.125% EPI 200 MCG/100 ML PLAST..BAG 6 MCG EPIDURAL ×2 (14:56→20:27)
[2024-02-06] MEDS: ACETAMINOPHEN 325 MG TABLET 650 MG PO (15:25)
--- NOTE | 2024-02-06 17:16 | PM.OBPNLAB ---
Date/Time Date Patient Seen: 02/06/24 Time Patient Seen: 17:16 Pain Control Pain control: epidural Pelvic Exam Dilation (cm): 6 Effacement (%): 90 station: -1 Amniotic membrane status: Ruptured Comments: After informed consent, AROM performed with copious clear fluid present. Contractions Pitocin rate (mU/min): 0 Contraction frequency (min): 3 Intrauterine tone measurement: 180 Status status: Category l Heart Rate Baseline: 140 Assessment and Plan Comments: 38yo at 38w5d her for IOL due to GDMA2 and AMA. also complicated by hypothyroidism, bipolar disorder, asthma, and restless leg syndrome. GBS negative, Rh negative (received Rhogam). Blood sugars thus far in acceptable range. Received 3 doses of cytotec overnight, now with regular painful contractions. Now on pitocin, which had to be turned off due to difficulties with monitoring. AROM performed with clear fluid present. FSE and IUPC placed. Contractions not adequate off pitocin. FSE not currently functioning due to not having the correct cord connections. FHT in good range based on doppler currently. - Epidural in place for pain control - Continue to hold pitocin until able to obtain FHT - Will re-try Staci for FHT - Continue blood sugar monitoring as per protocol - Collect cord blood after delivery for Rh status - No Hemabate due to asthma
[2024-02-06] MEDS: FAMOTIDINE 20 MG/2 ML VIAL IV (20:14)
--- NOTE | 2024-02-07 00:09 | PM.OBPRVD ---
Labor & Delivery Delivery date: 02/06/24 Cervical ripening method: per misoprostal protocol Induction method: per pitocin protocol Delivery augmentation: rupture of membranes Delivery monitor: external FHT and external uterine Route of delivery: Episiotomy description: None L&D Laceration Description: Perineal - 2nd Degree Quantitative Blood Loss: 200 Complications: None Narrative: PROCEDURE: at 38w5d presented for IOL due to GDMA2 and AMA and was admitted to Labor and Delivery. She received cytotec for induction, and then was initiated on pitocin. The patient progressed through the 1st stage over 13 hours. ROM occured at 16:40 with clear fluid. IUPC and FSE were placed due to difficulty with monitoring. Pain was controlled with an epidural. The patient progressed through the 2nd stage over 1.5 hours and delivered a viable male infant with APGARs 8/9 at 23:09 via without complications. The cord was cut and clamped after it stopped pulsating. The placenta delivered with gentle cord traction, and appeared complete. The perineum and vagina were inspected with 2nd degree perineal laceration repaired with 2-O Vicryl. Needle and sponge counts were correct.? The vagina was inspected and no items were left in situ. Gianna was doing well with Eder, her and , August, at bedside. PREPROCEDURE DIAGNOSIS: Intrauterine at 38w5d Bipolar disorder Restless leg syndrome Asthma GDMA2 AMA Hypothyroidism GBS negative RH negative POSTPROCEDURE DIAGNOSIS: Intrauterine at 38w5d, delivered Same as preprocedure [place] Baby 1: Infant gender: Male Presentation: vertex Position: Left Occiput Transverse Placenta delivery description: Spontaneous Cord Vessel Description: 3 Vessels score (1 min): 8 score (5 min): 9 weight: 8 lb 15.812 oz Plan for aftercare: Routine care
[2024-02-07] MEDS: ACETAMINOPHEN 325 MG TABLET 650 MG PO ×4 (01:00→20:17)
[2024-02-07] MEDS: DERMOPLAST SPRAY 20% 60 ML 1 SPRAY TOP (02:15)
[2024-02-07] MEDS: LANOLIN OINT 7 GM 1 APPLIC TOP (02:16)
[2024-02-07] MEDS: IBUPROFEN 600 MG TABLET PO ×3 (02:16→20:16)
[2024-02-07] MEDS: hydrOXYzine 50 MG/ML INJ 7.5 MG IM (02:17)
[2024-02-07] MEDS: CYCLOBENZAPRINE 10 MG TABLET 5 MG PO (02:17)
[2024-02-07] MEDS: WITCH HAZEL/GLYCERIN PADS 1 EACH TOP (02:17)
--- NOTE | 2024-02-07 04:48 | PC.NURSE ---
Addendum entered by Angus Driscoll R.N. 02/07/24 04:53: correction: patient took her quetiapine at 0130 from her own home medications. patient did not take lamotrigine. Original Note: patient took pantaprazole at 2100 from her own home medications and took her lamotrigine at 0130 from her own home medications
[2024-02-07] MEDS: OXYCODONE IR 5 MG TABLET PO ×4 (06:29→20:17)
[2024-02-07] MEDS: KETOROLAC 30 MG/ML VIAL IV (07:00)
[2024-02-07] MEDS: LEVOTHYROXINE 75 MCG TABLET 150 MCG PO (07:01)
[2024-02-07] MEDS: SUMAtriptan 25 MG TABLET 50 MG PO (07:58)
[2024-02-07] MEDS: lamoTRIgine 100 MG TABLET 25 MG PO (08:35)
[2024-02-07] MEDS: lamoTRIgine 100 MG TABLET 200 MG PO (08:35)
[2024-02-07] MEDS: DOCUSATE 100 MG CAPSULE PO (08:36)
[2024-02-07] MEDS: PANTOPRAZOLE DR 40 MG TABLET PO (08:36)
[2024-02-07] MEDS: PRENATAL VIT,CALC/IRON/FOLIC 1 TABLET 1 TAB PO (08:36)
--- NOTE | 2024-02-07 18:24 | PM.OBPN.1 ---
Subjective - OB Subjective Patient comments: no complaints and pain well controlled baby status: doing well and nursing well feeding status: exclusively breast feeding Narrative: Patient reports that she is doing well. Her lochia is decreasing appropriately. She has voided successfully. She continues to have significant pain in her upper shoulders/neck, however this is now controlled with oxycodone and Toradol. Exam Narrative Exam Narrative: Gen: NAD, sitting comfortably in bed, appears well CV: RRR, no murmurs Resp: clear to auscultation bilaterally Abd: soft, appropriately tender, fundus firm and below the umbilicus, nondistended Ext: no edema Objective Labs 02/05/24 20:30 Assessment & Plan Plan Comments: Pt is a 38yo PPD#1 s/p without complications. Pt doing well. - Normal care - support - Continue home Lamictal, Seroquel for bipolar disorder - Continue home Carbidopa-Levodopa for restless legs - Continue home Flovent for asthma - Continue home Levothyroxine for hypothyroidism - Encourage stretching, heat for neck pain - cord blood sent for Rh status Time-Based Coding :: [TOTAL MINUTES] spent with patient and on the chart (including review of chart, obtaining history, exam, reviewing outside data, placing orders, documenting exam and treatment plan, and counseling patient) on [DATE].
[2024-02-08] MEDS: OXYCODONE IR 5 MG TABLET PO ×4 (00:20→12:55)
[2024-02-08] MEDS: ACETAMINOPHEN 325 MG TABLET 650 MG PO ×2 (02:16→08:59)
[2024-02-08] MEDS: IBUPROFEN 600 MG TABLET PO ×2 (02:16→08:58)
--- NOTE | 2024-02-08 07:38 | PM.OBDS.1 ---
Discharge Providers Provider Date of admission: 02/05/24 19:25 Discharge Date: 02/08/24 Primary care physician: Doctor Joselito MD Consults: 02/08/24 00:08 Consult to Sous Chef Kitchen Manager Routine Comment: Discharge provider: Dora Storm MD Summary Hospital Course Date Patient Seen: 02/08/24 Time Patient Seen: 07:38 Hospital Course: Patient is a 38 yo [id number] F who presented at 38w5d for IOL for GDM A2 and AMA. Delivery uncomplicated. Did develop significant neck/shoulder pain after delivery. Seen by anesthesia - likely epidural TEMPLE. Recommended fiorocet which was given and Rx sent for home. Otherwise meeting all PP milestones. Fasting CBG 87. Time Spent with Patient Time attestation: Total time spent providing and/or coordinating discharge services: Objective Labs 02/05/24 20:30 Exam Vital Signs (past 8 hours): GEN: NAD, well appearing, pleasant CV: RRR Pulm:normal WOB, CTAB Abdomen: soft, fundus fim below U Skin: no visible rashes, WWP Psych: normal affect Neuro: normal gait, symmetric movement Discharge Plan Discharge Plan Patient Disposition: Home Discharge orders & Medications Prescriptions: New acetaminophen 325 mg Tablet 650 mg PO Q6HR PRN (Reason: Pain, Mild (1-3)) Qty: 30 0RF docusate sodium 100 mg Capsule 100 mg PO DAILY Qty: 30 0RF ibuprofen 600 mg Tablet 600 mg PO Q6HR PRN (Reason: Pain, Mild (1-3)) Qty: 30 0RF lidocaine 5 % Adhesive Patch,Medicated 1 patch topical DAILY Qty: 30 0RF Continued fluticasone propionate 250 mcg/actuation blister with device 1 inh inhalation Q12H Qty: 60 2RF Hold Instructions: Home Medication placed on hold at Doctor's office lamotrigine [Lamictal] 200 mg tablet 200 mg PO DAILY sumatriptan succinate 50 mg tablet 50 mg PO ONCE levothyroxine 150 mcg tablet 150 mcg PO DAILY quetiapine 400 mg tablet extended release 24 hr 400 mg PO DAILY valacyclovir 500 mg tablet 500 mg PO BID carbidopa-levodopa 25-100 mg tablet 1 tab PO BEDTIME pantoprazole 40 mg tablet,delayed release (DR/EC) 40 mg PO DAILY albuterol sulfate 90 mcg/actuation HFA aerosol inhaler 2 puff inhalation Q6H PRN (Reason: Bronchodilation) lamotrigine [Lamictal] 25 mg Tablet 25 mg PO DAILY Discontinued Humulin 70/30 U-100 KwikPen 100 unit/mL (70-30) insulin pen 42 unit SUBCUT DAILY Qty: 15 3RF Rx Instructions: Currently at 42 units, sliding scale as directed (DME) pen needle, diabetic [Ultra-Thin II Ins Pen [place]] 29 gauge x 1/2 needle See Rx Instructions .Route Qty: 100 3RF Rx Instructions: As directed insulin NPH isoph U-100 human 100 unit/mL suspension 30 unit SUBCUT ONCE Qty: 10 0RF Humulin 70/30 U-100 Insulin 100 unit/mL (70-30) suspension 1 sliding scale dose SUBCUT USEASDIRECTD promethazine 25 mg tablet 25 mg PO TID PRN (Reason: Acid Reflux) Follow up/Referrals: Esther Rao MD [Physician] - (Your six week follow up appointment with Dr. Rao is scheduled for March 19 @2pm.) Visit Report/Discharge Packet Stand Alone Forms: Discharge: Care, Patient Portal/API, Stroke Signs & Symptoms Discharge Data Primary Care Provider: Miscellaneous,Doctor
[2024-02-08] MEDS: lamoTRIgine 100 MG TABLET 200 MG PO (08:58)
[2024-02-08] MEDS: lamoTRIgine 100 MG TABLET 25 MG PO (08:58)
[2024-02-08] MEDS: DOCUSATE 100 MG CAPSULE PO (08:58)
[2024-02-08] MEDS: PANTOPRAZOLE DR 40 MG TABLET PO (08:58)
[2024-02-08] MEDS: PRENATAL VIT,CALC/IRON/FOLIC 1 TABLET 1 TAB PO (08:59)
--- NOTE | 2024-02-08 10:36 | PM.PN.1 ---
Subjective Subjective Interval history: 38yo female delivered late in the evening of 02/06/24. Plan is for discharge today. Pt's RN requested assessment for possible PDPH. I met with Gianna and her partner August this morning. Gianna describes a positional TEMPLE and neck pain. She also describes some hearing loss in one ear. She has been up to the bathroom twice today, both times with severe, way worse than my migraines TEMPLE pain that improves with laying down. She denies any sensitivity to light. She has had a cup of coffee today and says that seems to have help. Pt had a difficult epidural placement, requiring three attempts, and I did do a planned dural puncture with a 27g needle to help with labor pain. Pt says she is needle-phobic, and she is not at all interested in a blood patch at this time. She prefers conservative treatment. She is being given a Fioricet tablet this morning, and I asked the RN to see if the OB doctor covering her service would send pt home with Fioricet and caffeine pill prescriptions. Pt has a hx of migraines and has sumatriptan at home that she can use as well. I gave pt a handout on postdural puncture headaches and their treatment. I told her to expect resolution of her PDPH sx in days to weeks. If her headache becomes unbearable and she can no longer tolerate the symptoms, she can call the Center, who can contact Anesthesia, and we will schedule her for a blood patch procedure. I notified Dr. Kuhn, here next week, as well as the CRNAs control room agent over the weekend in case patient decides to come in for the blood patch. Pt has her partner and her mother who will be able to support her at home, and both Gianna and August seem comfortable with the plan and thanked me for my care. Objective Labs 02/05/24 20:30 [facility] Medical History (Updated 01/25/24 @ 10:50 by Esther Rao MD) Psychiatric hospitalization Hypertension (~2021) Hemorrhoid Surgical History (Updated 12/27/23 @ 13:28 by Hattie Rosenbaum, BRIANA) Anesthesia History of colonoscopy Family History (Updated 12/27/23 @ 13:31 by Hattie Rosenbaum, BRIANA) Mother Hypertension Pre-diabetes Skin cancer Father Hypertension Skin cancer Alcoholism Grandfather Liver cancer Heavy smoker Grandmother COPD (chronic obstructive pulmonary disease) Heavy smoker Grandfather No problems noted. 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[employer]) current occupational exposures/hazards: No special dwain needs: No travel history: over 6 months ago seatbelt use: always helmet use: No (counseled on this matter) water heater temp set < 120 deg: Yes working smoke detector in home: Yes fire extinguisher in home: Yes carbon monox detector in home: Yes firearms in home: Yes firearms unloaded and locked: Yes do you feel safe at home: Yes Smoking Status: Former smoker Tobacco: How many years used: 10 second hand exposure: No alcohol intake: former (sober since 2016) substance use type: does not use during the past year weight has: other (gained ~90 lb w/ last , lost 50 prior to this one) well-balanced diet: daily or most days daily servings fruits/ve-4 caffeine: Yes (single K-cup coffee in AM) Type(s) of exercise: walking Assessment & Plan Time-Based Coding :: [TOTAL MINUTES] spent with patient and on the chart (including review of chart, obtaining history, exam, reviewing outside data, placing orders, documenting exam and treatment plan, and counseling patient) on [DATE].
[2024-02-08] MEDS: BUTALB/APAP/CAFFEINE 50/325/40 TABLET 1 EACH PO (11:27)
== END 2024-02-08 13:35 | disposition home or self-care (01) | DRG 560 ==
PROVIDERS: Admitting Provider Family Medicine; Referring Provider Family Medicine; Visit Provider Family Medicine
DX: O24.424 Gestational diabetes mellitus in childbirth, insulin controlled (principal); O70.1 Second degree perineal laceration during delivery; O99.52 Diseases of the respiratory system complicating childbirth; J45.909 Unspecified asthma, uncomplicated; O99.354 Diseases of the nervous system complicating childbirth; G25.81 Restless legs syndrome; O99.284 Endocrine, nutritional and metabolic diseases complicating childbirth; E03.9 Hypothyroidism, unspecified; O99.344 Other mental disorders complicating childbirth; F31.9 Bipolar disorder, unspecified; Z67.41 Type O blood, Rh negative; Z37.0 Single live birth; Z3A.38 38 weeks gestation of pregnancy; O24.414 Gestational diabetes mellitus in pregnancy, insulin controlled
CPT/HCPCS: 36415; 59025; 59050; 59200; 59409; 85025; 86850; 86870; 86900; 86901; G0378; G0379; J1815; J1885; J2405; J2590; J3010; J3410

== ENCOUNTER → 2024-02-11 16:01 | Outpatient (CLI) | payer OTHER, MEDICAID, SELFPAY | PROVIDERS: Visit Provider Family Medicine | DX: Z22.322 Carrier or suspected carrier of Methicillin resistant Staphylococcus aureus (principal) | CPT/HCPCS: 87070; 87075; 87077; 87147; 87186; 87205 ==

== ENCOUNTER 2024-02-13 21:14 | Inpatient (IN) | payer OTHER, MEDICAID, SELFPAY ==
[2024-02-13 21:16] VITALS: BP 130/83; PULSE 97; RESP 18; TEMP 36.9; O2SAT 97; BMI 37.5
--- NOTE | 2024-02-13 21:36 | ED_ITS ---
HPI - Female Genitourinary General Chief complaint: Urogenital-Female Stated complaint: extreme pain Time Seen by Provider: 02/13/24 21:23 Source: patient Mode of arrival: Ambulatory History of Present Illness HPI Narrative: 38-year-old female with hx of gestational diabetes, hypothyroidism, bipolar disorder, asthma presents by private vehicle from home for evaluation of labial infection. Patient underwent vaginal delivery on 02/05 complicated by 2nd degree tear. At visit 02/10 there appeared to be a wound present and I&D performed and patient given clindamycin for previous hx of MRSA. Yesterday patient went to ER in [facility] and received manual disimpaction for constipation Related Data Home Medications Medication Instructions Recorded Confirmed lamotrigine 200 mg tablet 200 mg PO DAILY 08/17/23 02/11/24 (Lamictal) albuterol sulfate 90 mcg/actuation 2 puff inhalation Q6H PRN 12/27/23 02/11/24 aerosol inhaler Bronchodilation carbidopa 25 mg-levodopa 100 mg 1 tab PO BEDTIME restless leg 12/27/23 02/11/24 tablet levothyroxine 150 mcg tablet 150 mcg PO DAILY 12/27/23 02/11/24 pantoprazole 40 mg tablet,delayed 40 mg PO DAILY 12/27/23 02/11/24 release quetiapine 400 mg tablet,extended 400 mg PO DAILY 12/27/23 02/11/24 release 24 hr sumatriptan succinate 50 mg tablet 50 mg PO ONCE 12/27/23 02/11/24 valacyclovir 500 mg tablet 500 mg PO BID 12/27/23 02/11/24 lamotrigine 25 mg tablet (Lamictal) 25 mg PO DAILY 02/05/24 02/11/24 Previous Rx's Medication Instructions Recorded fluticasone propionate 250 1 inh inhalation Q12H #60 ea 01/02/24 mcg/actuation blister powder for inhalation acetaminophen 325 mg tablet 650 mg (2 x 325 mg) PO Q6HR PRN 02/07/24 Pain, Mild (1-3) #30 tabs docusate sodium 100 mg capsule 100 mg PO DAILY #30 caps 02/07/24 ibuprofen 600 mg tablet 600 mg PO Q6HR PRN Pain, Mild 02/07/24 (1-3) #30 tabs nhrlfttect-nscrzlfcujazl-nhnlqxct 1 cap PO Q8H PRN pain #5 caps 02/08/24 50 mg-300 mg-40 mg capsule (Fioricet) lidocaine 5 % topical patch 1 patch topical DAILY #30 ea 02/08/24 oxycodone 5 mg capsule 5 mg PO Q6H PRN pain #12 caps 02/09/24 clindamycin HCl 300 mg capsule 300 mg PO Q6H #28 caps 02/11/24 oxycodone 5 mg tablet 5 mg PO Q6H PRN pain #5 tabs 02/11/24 Allergies Allergy/AdvReac Type Severity Reaction Status Date / Time prochlorperazine Allergy Severe Hallucinati Verified 02/11/24 15:05 [From Compazine] ng hydromorphone [From Dilaudid] Allergy Intermediate rash Verified 02/11/24 15:05 Patient History Medical History Psychiatric hospitalization Hypertension (~2021) Hemorrhoid Surgical History Anesthesia History of colonoscopy Family History Mother Hypertension Pre-diabetes Skin cancer Father Hypertension Skin cancer Alcoholism Grandfather Liver cancer Heavy smoker Grandmother COPD (chronic obstructive pulmonary disease) Heavy smoker Grandfather No problems noted. Grandmother Diabetes mellitus Hypertension Heavy smoker COPD (chronic obstructive pulmonary disease) Sister Alcoholism Depression Anxiety Substance Use Type: does not use Exam Initial Vital Signs Initial Vital Signs: Vital Signs Temperature 98.4 F 02/13/24 21:16 Pulse Rate 97 H 02/13/24 21:16 Respiratory Rate 18 02/13/24 21:16 Blood Pressure 130/83 02/13/24 21:16 Pulse Oximetry 97 02/13/24 21:16 Oxygen Delivery Method Room Air 02/13/24 21:16 Const: Awake, alert, uncomfortable, nontoxic appearing Cardiac: regular rate, regular rhythm RESP: unlabored, clear bilaterally, no wheezing GI: Soft, nontender, nondistended : 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 thompson/caseous material seen on R labia. No obvious bleeding/drainage Skin: Warm, Dry, intact, no rashes Neuro: AO x3, CN II-XII grossly intact, moves all extremities Course Orders Ordered: ED Orders 02/13/24 21:25 Urine Culture Stat Urine Microscopic Stat 02/13/24 21:45 CBC Auto Diff [Complete Blood Count AUTO DIFF] Stat CMP [Comprehensive Metabolic Panel] Stat Lactate (Lactic Acid) Stat 02/13/24 22:10 CT pelvis w con Stat 02/13/24 22:13 Blood Culture Stat Type and Screen Stat Acetaminophen (Acetaminophen 325 Mg Tablet) 650 mg PO Q6H JOEY Carbidopa/Levodopa (Carbidopa-Levodopa 25/100 Tablet) 1 each PO BEDTIME JOEY Sodium Chloride (Normal Saline 0.45%) 1,000 mls @ 75 mls/hr IV CONT JOEY Lamotrigine (Lamotrigine 100 Mg Tablet) 200 mg PO DAILY [facility] Levothyroxine Sodium (Levothyroxine 75 Mcg Tablet) 150 mcg PO 0600 [facility] Morphine Sulfate (Morphine 4 Mg/Ml Inj) 4 mg IV Q2HR PRN PRN Reason: Breakthrough Pain Last Admin: 02/14/24 04:34 Dose: 4 mg Documented By: Admin: 02/14/24 01:23 Dose: 4 mg Documented By: ARISTEO Naloxone HCl (Naloxone 0.4 Mg/Ml Vial) 0.2 mg IV Q2MIN PRN PRN Reason: Opiate Reversal (Lamotrigine [ Lamictal] 25 Mg Tablet) 25 mg PO DAILY [facility] Quetiapine 400 Mg Tablet Extended Release 24 Hr) 400 mg PO DAILY [facility] Ondansetron HCl (Ondansetron 4 Mg/2 Ml Inj) 4 mg IV Q8HR PRN PRN Reason: Nausea And Vomiting Oxycodone HCl (Oxycodone Ir 10 Mg Tablet) 10 mg PO Q3H PRN PRN Reason: Pain, Severe (7-10) Last Admin: 02/14/24 03:40 Dose: 10 mg Documented By: Admin: 02/14/24 00:34 Dose: 10 mg Documented By: ARISTEO Oxycodone HCl (Oxycodone Ir 5 Mg Tablet) 5 mg PO Q3H PRN PRN Reason: Pain, Moderate (4-6) Pantoprazole Sodium (Pantoprazole Dr 20 Mg Tablet) 20 mg PO 0600 JOEY Discontinued Medications Vancomycin HCl/Dextrose (Vancomycin) 2,000 mg in 400 mls @ 200 mls/hr IV NOW ONE Stop: 02/13/24 23:35 Last Admin: 02/13/24 22:50 Dose: 200 mls/hr Documented By: AURORA Ceftriaxone Sodium 2,000 mg/ (Sodium Chloride) 100 mls @ 200 mls/hr IV NOW ONE Stop: 02/13/24 21:36 Last Infusion: 02/13/24 23:05 Dose: Infused Documented By: Admin: 02/13/24 22:39 Dose: 200 mls/hr Documented By: AURORA Morphine Sulfate (Morphine 4 Mg/Ml Inj) 4 mg IV NOW ONE Stop: 02/13/24 21:37 Last Admin: 02/13/24 22:01 Dose: 4 mg Documented By: AURORA Vital Signs Vital signs: Vital Signs - 8 hr 02/13/24 22:44 02/13/24 22:47 02/13/24 22:47 Pulse Rate 70 72 Blood Pressure 121/70 Pulse Oximetry 97 96 02/13/24 23:00 Pulse Rate 75 Blood Pressure Pulse Oximetry 98 MDM - Female Genitourinary Lab Data 02/13/24 21:45 02/13/24 21:45 Labs: Lab Results 02/13/24 02/13/24 02/13/24 Range/Units 21:25 21:45 22:13 WBC 9.5 (4.5-11.0) X10^3/uL RBC 3.88 L (4.0-5.2) X10^6/uL Hgb 12.5 (12.0-16.0) g/dL Hct 36.3 (36-46) % MCV 93.5 (80-100) fL MCH 32.1 (26-34) PG MCHC 34.3 (30-36) % RDW 14.1 (11.6-14.8) % Plt Count 352 (150-400) X10^3/uL Neut % (Auto) 64.3 (50-75) % Lymph % (Auto) 21.7 L (25-40) % [place] % (Auto) 8.6 (3-14) % Eos % (Auto) 4.6 H (2-4) % Baso % (Auto) 0.8 (0-2) % Neut # (Auto) 6100 (0662-4533) /uL Lymph # (Auto) 2100 (9215-7520) /uL [place] # (Auto) 800 (0-900) /uL Eos # (Auto) 400 (0-450) /uL Baso # (Auto) 100 (0-100) /uL Sodium 132 L (137-145) mmol/L Potassium 4.2 (3.4-5.1) mmol/L Chloride 102 (98-107) mmol/L Carbon Dioxide 24 (22-32) mmol/L BUN 12 (7-17) mg/dL Creatinine 0.66 (0.52-1.04) mg/dL Estimated GFR > 60 (>60) mL/min BUN/Creatinine Ratio 18.2 (6-22) Glucose 83 (70-100) mg/dL Lactate 1.1 (0.7-2.1) mmol/L Calcium 8.6 (8.4-10.2) mg/dL Total Bilirubin 0.3 (0.2-1.3) mg/dL AST 32 (14-36) IU/L ALT 18 (<35) IU/L Alkaline Phosphatase 174 H (38-126) U/L Total Protein 6.8 (6.3-8.2) g/dL Albumin 3.4 L (3.5-5.0) g/dL Globulin 3.4 (1.7-4.1) g/dL Albumin/Globulin Ratio 1.0 (1.0-2.8) Urine RBC 30-100/hpf H (0-5/HPF) Urine WBC 30-100/hpf H (0-5/HPF) Ur Squamous Epith Cells 1-5 /hpf (0-5/HPF) Urine Bacteria Few (2-10) H (None) Ur Culture Indicated? Specimen cultured Vol Urine Centrifuged 10ml (spun) Blood Type O Negative Antibody Screen Negative Point of Care Testing Glucose POC 82 Urine Dip Bedside Urine Glucose Negative Bedside Urine Bilirubin - Negative Bedside Urine Ketone - Negative Urine Specific [place] 1.000 Bedside Urine Occult Blood +++ Bedside Urine pH 6.0 Bedside Urine Protein - Negative Bedside Urine Urobilinogen - Negative Bedside Urine Nitrite - Negative Bedside Urine Leukocytes ++ [address] scan - abdomen/pelvis: Radiologist's Impression: PROCEDURE: CT PELVIS W CON INDICATIONS: vaginal tear infection evaluation TECHNIQUE: After the administration of intravenous contrast, 5 mm thick sections acquired from the iliac crests to the symphysis. 5 mm coronal and sagittal reformats were acquired. For radiation dose reduction, the following was used: automated exposure control, adjustment of mA and/or kV according to patient size. COMPARISON: None. FINDINGS: Image quality: Diagnostic. PELVIS: Peritoneum and Bowel: Bowel loops demonstrate normal wall thickness and caliber. No free fluid or air. Moderate to large volume of stool in the colon and rectum. Pelvic Organs: Enlarged post gravid uterus. Ovaries are symmetric in size. Bladder: Normal wall thickness, accounting for underdistension. No perivesicular fat stranding. Pelvic Nodes: No enlarged lymph nodes. Miscellaneous: No inguinal hernias are seen. mild diastasis of the rectus abdominus muscles. Bones: No aggressive osseous abnormality. IMPRESSION: 1. Enlarged post gravid uterus. No focal fluid collection or abscess is seen. 2. Moderate to large volume of stool in the colon and rectum. Approved by: Richie Ramirez M.D. on 02/13/2024 at 23:03 MDM Narrative Medical decision making narrative: Nontoxic patient presenting for concern of worsening labial wound infection. Patient adamant that we not touch her wound or do any more than a visual inspection. There does appear to be some caseous material but no obvious foul odor or active drainage. Laboratory work, blood cultures, empiric antibiotics ordered. Patient evaluated at bedside by OBGYN. Requested CT imaging for further assessment of wound to rule out underlying abscess. CT shows no underlying abscess. Patient to be admitted to labor and delivery service for further monitoring and treatment. Discharge Plan Departure Patient Disposition: Admitted as Observation Clinical Impression: Infection of perineal wound, Obstipation, MRSA (methicillin resistant Staphylococcus aureus) Admit Date/Time: 02/13/24 23:18 Admit Provider: Rosie Cabrera
[2024-02-13 21:50] LABS: Urine Volume 10mL (spun)
[2024-02-13 21:51] LABS: Bacteria Urine Few (2-10); Culture Indicated Urine Specimen Cultured; RBC Urine 30-100/HPF (0-5/HPF); Squamous Epithelial Cell Urine 1-5 /HPF (0-5/HPF); WBC Urine 30-100/HPF (0-5/HPF)
[2024-02-13 21:55] LABS: Add Manual Diff / Slide Review NO; Basophils Absolute Auto 100 /uL (0-100); Basophils Percent Auto 0.8 % (0-2); Eosinophils Absolute Auto 400 /uL (0-450); Eosinophils Percent Auto 4.6 % (2-4); Hematocrit 36.3 % (36-46); Hemoglobin 12.5 g/dL (12.0-16.0); Lymphocytes Absolute Auto 2100 /uL (1100-4500); Lymphocytes Percent Auto 21.7 % (25-40); Mean Corpuscular HGB Conc 34.3 % (30-36); Mean Corpuscular Hemoglobin 32.1 PG (26-34); Mean Corpuscular Volume 93.5 fL (80-100); Monocytes Absolute Auto 800 /uL (0-900); Monocytes Percent Auto 8.6 % (3-14); Neutrophils Absolute Auto 6100 /uL (1500-7000); Neutrophils Percent Auto 64.3 % (50-75); Platelet Count 352 X10^3/uL (150-400); Red Blood Cell Count 3.88 X10^6/uL (4.0-5.2); Red Cell Distribution Width 14.1 % (11.6-14.8); White Blood Cell Count 9.5 X10^3/uL (4.5-11.0)
[2024-02-13] MEDS: MORPHINE 4 MG/ML INJ IV (22:01)
[2024-02-13 22:08] LABS: Alanine Aminotransferase 18 IU/L (<35); Albumin 3.4 g/dL (3.5-5.0); Alkaline Phosphatase 174 U/L (38-126); Aspartate Aminotransferase 32 IU/L (14-36); BUN Creatinine Ratio 18.2 (6-22); Bilirubin Total 0.3 mg/dL (0.2-1.3); Blood Urea Nitrogen 12 mg/dL (7-17); Calcium 8.6 mg/dL (8.4-10.2); Carbon Dioxide 24 mmol/L (22-32); Chloride 102 mmol/L (98-107); Estimated Glomerular Filt Rate > 60 mL/min (>60); Globulin 3.4 g/dL (1.7-4.1); Glucose 83 mg/dL (70-100); HEMOLYSIS < 15 (0-50); Potassium 4.2 mmol/L (3.4-5.1); Sodium 132 mmol/L (137-145); Total Protein 6.8 g/dL (6.3-8.2)
--- NOTE | 2024-02-13 22:10 | DI.CT.S_ITS ---
PROCEDURE: CT PELVIS W CON INDICATIONS: vaginal tear infection evaluation TECHNIQUE: After the administration of intravenous contrast, 5 mm thick sections acquired from the iliac crests to the symphysis. 5 mm coronal and sagittal reformats were acquired. For radiation dose reduction, the following was used: automated exposure control, adjustment of mA and/or kV according to patient size. COMPARISON: None. FINDINGS: Image quality: Diagnostic. PELVIS: Peritoneum and Bowel: Bowel loops demonstrate normal wall thickness and caliber. No free fluid or air. Moderate to large volume of stool in the colon and rectum. Pelvic Organs: Enlarged post gravid uterus. Ovaries are symmetric in size. Bladder: Normal wall thickness, accounting for underdistension. No perivesicular fat stranding. Pelvic Nodes: No enlarged lymph nodes. Miscellaneous: No inguinal hernias are seen. mild diastasis of the rectus abdominus muscles. Bones: No aggressive osseous abnormality. IMPRESSION: 1. Enlarged post gravid uterus. No focal fluid collection or abscess is seen. 2. Moderate to large volume of stool in the colon and rectum. Approved by: Richie Ramirez M.D. on 02/13/2024 at 23:03
[2024-02-13 22:17] LABS: Lactate (Lactic Acid) 1.1 mmol/L (0.7-2.1)
--- NOTE | 2024-02-13 22:22 | PM.GYNHP.1 ---
History of Present Illness History of Present Illness Narrative: Gianna Carballo is a 38 year old female PPD6 s/p 02/07/24 presents to ED at advice of on-call [facility]ROFESSIONAL for further evaluation of persistent pain following breakdown of 2nd degree perineal repair. Pt states that over the weekend she was straining for a bowel movement when she felt a pop. She was evaluated in the office the following day (02/10, [facility]) at which time a wound infection was identified. Simple I&D was performed and cultures were obtained; due to personal h/o vulvar abscess with MRSA pt was placed empirically on clindamycin. Pt experienced worsening pain secondary to constipation and presented to OSH ED ([facility]) where manual disimpaction was performed under conscious sedation. Pt had originally been scheduled for close interval f/u in office today, however appointment was rescheduled due to change in provider schedule. Pt states that her pain is only getting worse, no longer getting adequate relief from current oral analgesia. Subjective feels warm but has not been checking temperature at home and afebrile on arrival to ED. Pt states that pain is localized to perineum, within the last 6-8h has also felt like the pain is moving into my butt muscles, has not appreciated any significant malodor beyond normal lochia, scant mucoid yellow discharge PMHx notable for class 2 obesity, hypothyroidism, biploar affective disorder, mild intermittent asthma, CHTN (no meds), h/o EtOH use disorder (sustained sobriety since 2015) course notable for A2-GDM (euglycemic on arrival to ED), insulin discontinued ; personal h/o MRSA vulvar abscess (G1); h/o prior OASIS (4th degree laceration, G1); personal h/o pre-eclampsia. On arrival to ED pt VSS/afebrile, initial labs without significant leukocytosis, PIH labs wnl. Pt noted to have marked anxiety in anticipation of any exam, able to tolerate only external visual exam as documented below. Last solid PO intake @ 1900. Patient is , states willingness to pump/dump as indicated/necessitated [facility] Medical History (Updated 02/13/24 @ 22:38 by Rosie Cabrera MD) Psychiatric hospitalization Hypertension (~2021) Hemorrhoid Surgical History (Updated 12/27/23 @ 13:28 by Hattie Rosenbaum RN) Anesthesia History of colonoscopy Family History (Updated 12/27/23 @ 13:31 by Hattie Rosenbaum RN) Mother Hypertension Pre-diabetes Skin cancer Father Hypertension Skin cancer Alcoholism Grandfather Liver cancer Heavy smoker Grandmother COPD (chronic obstructive pulmonary disease) Heavy smoker Grandfather No problems noted. 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[employer]) current occupational exposures/hazards: No special dwain needs: No travel history: over 6 months ago seatbelt use: always helmet use: No (counseled on this matter) water heater temp set < 120 deg: Yes working smoke detector in home: Yes fire extinguisher in home: Yes carbon monox detector in home: Yes firearms in home: Yes firearms unloaded and locked: Yes do you feel safe at home: Yes Smoking Status: Former smoker Tobacco: How many years used: 10 second hand exposure: No alcohol intake: former (sober since 2016) substance use type: does not use during the past year weight has: other (gained ~90 lb w/ last , lost 50 prior to this one) well-balanced diet: daily or most days daily servings fruits/ve-4 caffeine: Yes (single K-cup coffee in AM) Type(s) of exercise: walking Meds Home Medications and Allergies Home Medications Medication Instructions Recorded Confirmed Type lamotrigine 200 mg tablet 200 mg PO DAILY 08/17/23 02/11/24 History (Lamictal) albuterol sulfate 90 mcg/actuation 2 puff inhalation Q6H PRN 12/27/23 02/11/24 History aerosol inhaler Bronchodilation carbidopa 25 mg-levodopa 100 mg 1 tab PO BEDTIME restless leg 12/27/23 02/11/24 History tablet levothyroxine 150 mcg tablet 150 mcg PO DAILY 12/27/23 02/11/24 History pantoprazole 40 mg tablet,delayed 40 mg PO DAILY 12/27/23 02/11/24 History release quetiapine 400 mg tablet,extended 400 mg PO DAILY 12/27/23 02/11/24 History release 24 hr sumatriptan succinate 50 mg tablet 50 mg PO ONCE 12/27/23 02/11/24 History valacyclovir 500 mg tablet 500 mg PO BID 12/27/23 02/11/24 History fluticasone propionate 250 1 inh inhalation Q12H #60 ea 01/02/24 02/11/24 Rx mcg/actuation blister powder for inhalation lamotrigine 25 mg tablet (Lamictal) 25 mg PO DAILY 02/05/24 02/11/24 History acetaminophen 325 mg tablet 650 mg (2 x 325 mg) PO Q6HR PRN 02/07/24 02/11/24 Rx Pain, Mild (1-3) #30 tabs docusate sodium 100 mg capsule 100 mg PO DAILY #30 caps 02/07/24 02/11/24 Rx ibuprofen 600 mg tablet 600 mg PO Q6HR PRN Pain, Mild 02/07/24 02/11/24 Rx (1-3) #30 tabs bzsbkbvbeg-zoqdrxioansmm-miqbzdkx 1 cap PO Q8H PRN pain #5 caps 02/08/24 02/11/24 Rx 50 mg-300 mg-40 mg capsule (Fioricet) lidocaine 5 % topical patch 1 patch topical DAILY #30 ea 02/08/24 02/11/24 Rx oxycodone 5 mg capsule 5 mg PO Q6H PRN pain #12 caps 02/09/24 02/11/24 Rx clindamycin HCl 300 mg capsule 300 mg PO Q6H #28 caps 02/11/24 02/11/24 Rx oxycodone 5 mg tablet 5 mg PO Q6H PRN pain #5 tabs 02/11/24 02/11/24 Rx Allergies Allergy/AdvReac Type Severity Reaction Status Date / Time prochlorperazine Allergy Severe Hallucinati Verified 02/11/24 15:05 [From Compazine] ng hydromorphone [From Dilaudid] Allergy Intermediate rash Verified 02/11/24 15:05 Review of Systems Review of Systems ROS: Yes All systems reviewed with the patient and are negative except as otherwise documented Exam Vital Signs (past 8 hours): - 02/13/24 21:16 Temperature 98.4 F Pulse Rate 97 H Respiratory Rate 18 Blood Pressure 130/83 Pulse Oximetry 97 Oxygen Delivery Method Room Air Oxygen Delivery Method Room Air Const General: cooperative, in distress and anxious Nutritional Appearance: obese Orientation: alert, awake and oriented x3 Limitations: mental status not altered Resp Effort & Inspection: normal respiratory effort and able to speak in complete sentences GI Palpation: soft Other: fundus firm << umb Other: limited visual exam secondary to patient intolerance perineal laceration visualized, detached/exposed suture visible at inferior aspect, wound bed with thompson/caseous appearance without malodor dependent labial edema noted without extension no LNG LAD appreciated Skin General: no rashes or lesions noted Neuro General: patient alert, patient awake and patient oriented x3 Extrem General: normal to inspection Psych Mental Status: mental status grossly normal Mood: anxious mood Judgment: judgment good Objective Labs 02/13/24 21:45 02/13/24 21:45 Labs: Laboratory Results - last 24 hr 02/13/24 02/13/24 21:25 21:45 WBC 9.5 RBC 3.88 L Hgb 12.5 Hct 36.3 MCV 93.5 MCH 32.1 MCHC 34.3 RDW 14.1 Plt Count 352 Neut % (Auto) 64.3 Lymph % (Auto) 21.7 L Dade % (Auto) 8.6 Eos % (Auto) 4.6 H Baso % (Auto) 0.8 Neut # (Auto) 6100 Lymph # (Auto) 2100 Dade # (Auto) 800 Eos # (Auto) 400 Baso # (Auto) 100 Sodium 132 L Potassium 4.2 Chloride 102 Carbon Dioxide 24 BUN 12 Creatinine 0.66 Estimated GFR > 60 BUN/Creatinine Ratio 18.2 Glucose 83 Lactate 1.1 Calcium 8.6 Total Bilirubin 0.3 AST 32 ALT 18 Alkaline Phosphatase 174 H Total Protein 6.8 Albumin 3.4 L Globulin 3.4 Albumin/Globulin Ratio 1.0 Urine RBC 30-100/hpf H Urine WBC 30-100/hpf H Ur Squamous Epith Cells 1-5 /hpf Urine Bacteria Few (2-10) H Ur Culture Indicated? Specimen cultured Vol Urine Centrifuged 10ml (spun) Assessment & Plan Assessment and plan (1) Infection of perineal wound: Status: Acute (2) MRSA (methicillin resistant staph aureus) culture positive: Status: Acute (3) Obstipation: Status: Acute Plan 38yo PPD6 s/p presents to ED with 2nd degree perineal repair complication, superinfection with concern persistent abscess; obstipation Perineal wound complication Patient counseled on recommendation for EUA, wound exploration/debridement; given recent last PO intake in absence of s/sx of SIRS or rapid extension per CT abd/pelvis will plan for admission to [facility]OF[facility] service with planned procedure in AM pending coordination of care with available provider and surgery schedule Low-dose IV morphine for analgesia administered in ED, plan for same overnight if patient is okay with pumping/dumping of breastmilk due increased risk of respiratory depression Wound cultures obtained in office confirm +MRSA, noted erythromicin resistance but sensitive to gentamicin/vancomycin/doxycycline IV vancomycin x1 in ED on arrival, anticipate continuation following procedure pending findings vs transition to PO tail Obstipation will likely necessitate repeat disimpaction at time of EUA lactulose for bowel regimen following procedure PRN to titrate stool to soft caliber support boarding in birthing center to minimize separation/stress of maternal/child dyad support PRN high risk PPD, close interval f/u as indicated hypothyroidism continue home synthroid, ordered bipolar disorder home medications continued, lamictal, seroquel restless leg syndrome home medications continued, carbidopa-levidopa Dispo: admit to [facility]GAL PARAPROFESSIONAL service for observation in anticipation of EUA, wound exploration/debridement in AM pending coordination of provider/OR schedule F: NS @ 75cc/hr E: no indication for repletions N: NPO @ midnight Pain plan: oxycodone 10mg PO q4h PRN, IV morhpine 4mg q2h PRN breakthrough DVT ppx: SCDs while in bed due to limited ambulation, state Time-Based Coding :: [TOTAL MINUTES] spent with patient and on the chart (including review of chart, obtaining history, exam, reviewing outside data, placing orders, documenting exam and treatment plan, and counseling patient) on [DATE].
[2024-02-13] MEDS: cefTRIAXone 2,000 MG in SODIUM CHLORIDE 0.9% 100 ML 200 MG IV (22:39)
[2024-02-13 22:44] VITALS: PULSE 70; O2SAT 97
[2024-02-13 22:47] VITALS: BP 121/70; PULSE 72; O2SAT 96
[2024-02-13] MEDS: VANCOMYCIN 2,000 MG/400 ML PIGGYBACK 200 MG IV (22:50)
[2024-02-13 23:00] VITALS: PULSE 75; O2SAT 98
[2024-02-14] VITALS (8 sets, daily range): BP systolic 103–136; BP diastolic 54–87; PULSE 68–95; RESP 14–18; TEMP 36.3–36.7; O2SAT 96–99; BMI 37.5
[2024-02-14] MEDS: OXYCODONE IR 10 MG TABLET PO ×7 (00:34→23:07)
[2024-02-14] MEDS: MORPHINE 4 MG/ML INJ IV ×7 (01:23→23:07)
[2024-02-14 06:22] LABS: Add Manual Diff / Slide Review NO; Basophils Absolute Auto 0 /uL (0-100); Basophils Percent Auto 0.5 % (0-2); Eosinophils Absolute Auto 500 /uL (0-450); Eosinophils Percent Auto 5.5 % (2-4); Hematocrit 35.4 % (36-46); Lymphocytes Absolute Auto 2100 /uL (1100-4500); Lymphocytes Percent Auto 24.8 % (25-40); Mean Corpuscular HGB Conc 33.8 % (30-36); Mean Corpuscular Volume 94.6 fL (80-100); Monocytes Absolute Auto 800 /uL (0-900); Monocytes Percent Auto 9.2 % (3-14); Neutrophils Absolute Auto 5100 /uL (1500-7000); Platelet Count 306 X10^3/uL (150-400); Red Blood Cell Count 3.74 X10^6/uL (4.0-5.2); Red Cell Distribution Width 14.2 % (11.6-14.8); White Blood Cell Count 8.5 X10^3/uL (4.5-11.0)
[2024-02-14 06:34] LABS: Alanine Aminotransferase 10 IU/L (<35); Albumin 3.1 g/dL (3.5-5.0); Alkaline Phosphatase 151 U/L (38-126); Aspartate Aminotransferase 28 IU/L (14-36); BUN Creatinine Ratio 19.1 (6-22); Bilirubin Total 0.2 mg/dL (0.2-1.3); Blood Urea Nitrogen 13 mg/dL (7-17); Calcium 8.4 mg/dL (8.4-10.2); Carbon Dioxide 25 mmol/L (22-32); Chloride 103 mmol/L (98-107); Estimated Glomerular Filt Rate > 60 mL/min (>60); Globulin 3.1 g/dL (1.7-4.1); Glucose 102 mg/dL (70-100); HEMOLYSIS < 15 (0-50); Sodium 132 mmol/L (137-145); Total Protein 6.2 g/dL (6.3-8.2)
--- NOTE | 2024-02-14 08:36 | PC.NURSE ---
RN placed sequential compression devices on patient's calves.
--- NOTE | 2024-02-14 08:40 | PC.NURSE ---
patient's pain level is 6 after morphine
--- NOTE | 2024-02-14 08:45 | PC.NURSE ---
MARTIN report to Dr. Crawley
--- NOTE | 2024-02-14 09:07 | PC.NURSE ---
RN found patient and patient's partner to be cosleeping with . RN educated both patient and on risks of cosleeping. patient and FOB continued to cosleep after RN educated
--- NOTE | 2024-02-14 10:40 | CM.MNRNOTE ---
RN attempted to assess patient's vagina to look at laceration at 0730 during morning assessment. patient states it's too painful to open my legs. can you please do it later? RN educated on purpose of assessment and patient continued to decline assessment after RN educated.
--- NOTE | 2024-02-14 10:41 | PC.NURSE ---
RN asked patient if now is a good time to assess vagina. patient allowed nurse to perform vaginal assessment. no swelling or redness noted. stitches visible. no drainage noted at this time.
--- NOTE | 2024-02-14 11:50 | PC.NURSE ---
patient reported she took her medications from home this morning. per patient I took my lamotrigine, levothyroxine, pantaprazole and cold sore cream
--- NOTE | 2024-02-14 11:51 | PC.NURSE ---
RN took another temperature. temporal temperature at 1115 was 97.2
--- NOTE | 2024-02-14 12:05 | PC.NURSE ---
1117 RN counted respirations before giving morphine. 14 respirations
--- NOTE | 2024-02-14 15:15 | PC.NURSE ---
at 1255 RN at bedside taking vitals.
--- NOTE | 2024-02-14 16:56 | PC.NURSE ---
at 1255 patient reassessed. no change in maternal assessment from morning assessment.
--- NOTE | 2024-02-14 17:04 | PC.NURSE ---
respirations are 16
[2024-02-14] MEDS: LACTATED RINGERS 1,000 ML 42 ML IV (17:31)
--- NOTE | 2024-02-14 17:56 | PM.PREOP ---
Pre-operative Note COVID-19 COVID-19 status: Not tested Interval Note History & Physical reviewed/Exam performed by Physician: Yes Changes to H&P: No H&P completed within 30 days and has changed as indicated here:: Chart reviewed and current issues reviewed with the patient. Due to the patient's extreme discomfort with the breakdown of her perineal laceration repair, recommend examination under anesthesia with active debridement. Counseled patient regarding options, risks, benefits, potential complications. Will also place a catheter to avoid urine spilling onto the perineal tear and overlying dressings for passive debridement with wet-to-dry dressings. Patient understands that this is the 1st of what may be several sessions of debridement either to facilitate closure by secondary intention or as part of the process to achieve delayed closure at a later date. With full understanding of the above, written consent was executed, signed, and witnessed this evening.
--- NOTE | 2024-02-14 18:35 | SUR.OPER ---
Lithotomy on padded OR bed, head on pillow, arms secured on padded arm boards at <90 degrees abduction. Legs secured in padded yellow fins stirrups.
--- NOTE | 2024-02-14 19:14 | P.OP_ITS ---
Operative Date/Time/Diagnoses Date of procedure: 02/14/24 Time of procedure: 18:00 Pre-op diagnosis: Partial breakdown of perineal laceration repair MRSA Post-op diagnosis: same Procedure & Clinicians Procedure: Procedures Operation Date: 02/14/24 16:15 Actual Procedure Side Surgeon p Exam Under Anesthesia debridment of vaginal wound José Crawley MD Indications: Gianna is a 38-year-old approximately 1 week status post vaginal associated with second-degree perineal laceration repaired in the usual manner. Since that time she has had increasing pain and drainage from the laceration repair and experienced 2 partial breakdown. The per the drainage from the perineal laceration has cultured positive for resistant MRSA and she is undergoing examination under anesthesia with planned debridement of the perineal laceration so as to determine the extent of the break down as well as whether or not there any underlying factors such as rectal involvement or development of abscess tracts into the perineum and/or perianal areas. Surgeon: José Crawley Anesthesia Type: General Operative Notes Findings: Examination under anesthesia shows a partially healed midline perineal laceration with some residual suture material protruding from healing surfaces. Those were removed during the course of the surgery. The remainder of the laceration repair however appears intact aside from superficial breakdown of the entire tear line but at no point greater than 1 cm in depth and typically only 3-5 mm. At the beginning of the case, there was necrotic debris and soft eschar as well as 1 small tract for which purulent material was expressed on the right side. Rectal examination showed no evidence of mucosal involvement and there was no palpable fluctuance or significant induration in the rectovaginal or perianal areas. The sphincter was intact but sphincter tone could not be judged as the patient was asleep. At the completion of the case, there was no residual necrotic debris and no evidence of underlying purulent material at any location of the perineal laceration. Closure Type: not applicable Specimen(s): none Applied: catheter Estimated blood loss (mL): 5 Blood products transfused: none Procedure in detail: With the patient under satisfactory general anesthesia in the modified dorsal lithotomy position, the perineum, vagina, and lower abdomen were prepped and draped in the usual manner for exam under anesthesia. The external genitalia were carefully inspected and the most cephalad portion of the laceration was carefully evaluated and located approximately 2 cm inside the vaginal introitus. All areas were carefully inspected and pulse lavage with sterile saline was used to remove all necrotic debris, eschar, and any purulent material noted during the course of the examination under anesthesia. Rectal examination was then performed with the findings as noted above. Two small pieces of fluff gauze soaked in Dakin solution were then placed into the wound itself and a dry dressing over the wet dressing was applied followed by a peripad and stretch undergarments to hold the dressing in place. Aguero catheter was inserted for a similar purpose as well as patient comfort overnight following debridement. There was a small area of bleeding on the raw surface of the perineum on the right side which was easily controlled with silver nitrate. No other abnorm alities were identified and the procedure was terminated by waking the patient and transferred to the PACU after having tolerated the procedure well. Complications: none Post-operative Condition: stable Disposition: PACU
--- NOTE | 2024-02-14 19:40 | PC.NURSE ---
SCDs in place on pt calves and cycling.
--- NOTE | 2024-02-14 20:05 | PC.NURSE ---
Dr. Crawley at discussing plan with patient
[2024-02-14] MEDS: VANCOMYCIN 1,500 MG/300 ML PIGGYBACK 200 MG IV (20:12)
[2024-02-14] MEDS: CARBIDOPA-LEVODOPA 25/100 TABLET 1 EACH PO (21:29)
[2024-02-14] MEDS: CALCIUM CARBONATE 500 MG TAB PO (22:12)
[2024-02-15] VITALS (11 sets, daily range): BP systolic 110–133; BP diastolic 65–91; PULSE 66–84; RESP 10–19; TEMP 36.2–37.3; O2SAT 95–100; BMI 37.5
[2024-02-15] MEDS: OXYCODONE IR 10 MG TABLET PO ×4 (02:14→12:37)
[2024-02-15] MEDS: MORPHINE 4 MG/ML INJ IV ×2 (02:14→05:04)
[2024-02-15] MEDS: LEVOTHYROXINE 75 MCG TABLET 150 MCG PO (07:07)
[2024-02-15] MEDS: PANTOPRAZOLE DR 20 MG TABLET PO (07:08)
[2024-02-15] MEDS: lamoTRIgine 100 MG TABLET 225 MG PO (08:05)
[2024-02-15] MEDS: ACETAMINOPHEN 325 MG TABLET 650 MG PO ×3 (08:05→20:02)
[2024-02-15] MEDS: LACTULOSE 20 GM/30 ML SOLUTION PO (08:06)
[2024-02-15] MEDS: SILVER SULFADIAZINE 1% CREAM 50 GM 1 APPLIC TOP (08:07)
[2024-02-15] MEDS: IBUPROFEN 400 MG TABLET 800 MG PO (09:13)
--- NOTE | 2024-02-15 09:36 | PC.NURSE ---
Swetha in room. Removed vaginal packing. Decision made to go back OR again later today.
--- NOTE | 2024-02-15 10:44 | P.PN_ITS ---
Subjective Subjective Date Patient Seen: 02/15/24 Time Patient Seen: 07:30 Interval history: POD1 s/p EUA with washout, debridement afebrile, VSS overnight still requiring significant analgesia - oxycodone 10mg q4h PRN, IV morphine PRN breakthrough (last at 0500) states overall improvement in pain, was able to cough this AM without severe exacerbation pumping breastmilk Exam Vital Signs (past 8 hours): - 02/15/24 05:15 02/15/24 08:20 Temperature 97.4 F L 97.1 F L Pulse Rate 66 74 Respiratory Rate 16 18 Blood Pressure 121/76 129/75 Pulse Oximetry 95 98 Oxygen Delivery Method Room Air Const General: cooperative and comfortable Nutritional Appearance: obese Orientation: alert, awake and oriented x3 Limitations: mental status not altered Resp Effort & Inspection: normal respiratory effort and able to speak in complete sentences Cardio Pulses: normal peripheral pulses GI Palpation: soft Other: chaperoned bedside exam performed in tandem with Dr. Crawley @ 1000 packing removed, moderate saturation with sero-sanguinous drainage noted purulent material at R aspect consistent with previously identified tract Skin General: no rashes or lesions noted Neuro General: patient alert, patient awake and patient oriented x3 Extrem General: normal to inspection Psych Mental Status: mental status grossly normal Judgment: judgment good Objective Labs 02/15/24 11:41 02/16/24 16:35 [facility] Medical History (spontaneous vaginal delivery) (02/06/24) Psychiatric hospitalization Hemorrhoid Hypertension (~2021) Surgical History (Updated 02/21/24 @ 10:39 by Steffi Wallis RN) History of incision and drainage (02/16/24) History of incision and drainage (02/15/24) History of surgery (02/14/24) Anesthesia History of colonoscopy Family History Mother Hypertension Pre-diabetes Skin cancer Father Hypertension Skin cancer Alcoholism Grandfather Liver cancer Heavy smoker Grandmother COPD (chronic obstructive pulmonary disease) Heavy smoker Grandfather No problems noted. 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[employer]) current occupational exposures/hazards: No special dwain needs: No travel history: over 6 months ago seatbelt use: always helmet use: No (counseled on this matter) water heater temp set < 120 deg: Yes working smoke detector in home: Yes fire extinguisher in home: Yes carbon monox detector in home: Yes firearms in home: Yes firearms unloaded and locked: Yes do you feel safe at home: Yes Smoking Status: Former smoker Tobacco: How many years used: 10 second hand exposure: No alcohol intake: former substance use type: does not use during the past year weight has: other (gained ~90 lb w/ last , lost 50 prior to this one) well-balanced diet: daily or most days daily servings fruits/ve-4 caffeine: Yes (single K-cup coffee in AM) Type(s) of exercise: walking Assessment & Plan Assessment and plan (1) Infection of perineal wound: Status: Acute (2) MRSA (methicillin resistant Staphylococcus aureus): Status: Acute Plan 38yo PPD8 s/p , HD2 readmission for perineal wound breakdown/superinfection with +MRSA by culture, POD1 s/p EUA with washout/debridement/packing/fecal disimpaction Perineal wound breakdown/superinfection, +MRSA by culture Recurrent purulent drainage at time of wound care this AM Patient counseled on indication for repeat EUA with washout/debridement, verbalized understanding and in agreement with plan of care Last solid PO at 0800, strict NPO now and case posted for 1600 with on-call provider (Dr. Vang) Last dose abx (IV vancomycin) 2100 on 02/13, anticipate transition to PO pending intraoperative findings No AM labs collected, stat CBC ordered to confirm continued stability/no interval leukocytosis Obstipation Resolved s/p manual disimpaction at time of procedure 02/13 bowel regimen ordered this AM (lactulose) to reduce risk of recurrence in setting of ongoing opiate-induced constipation F: NS @ 75cc/hr while NPO E: no indication for repletions N: strict NPO in advance of procedure at 1600 Pain plan: dc IV morhpine for breakthrough, continue PRN oxycodone, scheduled tylenol; new addition of scheduled ibuprofen, single dose IV toradol 15mg this AM DVT ppx: SCDs while in bed Dispo: pending clinical course, high likelihood of need for serial EUA/washout pending findings today Time-Based Coding :: [TOTAL MINUTES] spent with patient and on the chart (including review of chart, obtaining history, exam, reviewing outside data, placing orders, documenting exam and treatment plan, and counseling patient) on [DATE]. Quality VTE Deep Vein Thrombosis/Pulmonary Embolism Present on Admission: No
[2024-02-15 11:47] LABS: Add Manual Diff / Slide Review NO; Basophils Absolute Auto 100 /uL (0-100); Basophils Percent Auto 0.7 % (0-2); Eosinophils Absolute Auto 300 /uL (0-450); Eosinophils Percent Auto 2.8 % (2-4); Hematocrit 36.4 % (36-46); Hemoglobin 12.2 g/dL (12.0-16.0); Lymphocytes Absolute Auto 2000 /uL (1100-4500); Lymphocytes Percent Auto 19.2 % (25-40); Mean Corpuscular HGB Conc 33.7 % (30-36); Mean Corpuscular Hemoglobin 31.7 PG (26-34); Mean Corpuscular Volume 94.3 fL (80-100); Monocytes Absolute Auto 800 /uL (0-900); Monocytes Percent Auto 7.3 % (3-14); Neutrophils Absolute Auto 7300 /uL (1500-7000); Platelet Count 367 X10^3/uL (150-400); Red Blood Cell Count 3.86 X10^6/uL (4.0-5.2); Red Cell Distribution Width 14.3 % (11.6-14.8); White Blood Cell Count 10.4 X10^3/uL (4.5-11.0)
--- NOTE | 2024-02-15 15:34 | PM.PREOP ---
Pre-operative Note Interval Note History & Physical reviewed/Exam performed by Physician: Yes Changes to H&P: No H&P completed within 30 days and has changed as indicated here:: 02/13/24
--- NOTE | 2024-02-15 16:16 | SUR.OPER ---
Lithotomy on padded OR bed, head on pillow, arms secured on padded arm boards at <90 degrees abduction. Legs secured in padded yellow fins stirrups.
[2024-02-15] MEDS: SODIUM HYPOCHLORITE 473 ML SOLUTION TOP (16:23)
--- NOTE | 2024-02-15 16:35 | PM.GYNOP.1 ---
Operative Date/Time/Diagnoses Date of procedure: 02/15/24 Time of procedure: 16:35 Pre-op diagnosis: Infection of obstetrical laceration site Post-op diagnosis: same Procedure & Clinicians Procedure: Procedures Operation Date: 02/14/24 16:15 Actual Procedure Side Surgeon p Exam Under Anesthesia debridment of vaginal wound José Crawley MD Operation Date: 02/15/24 16:00 <No data on this case meets the specified criteria> Indications: Breakdown and infection ob obstetrical laceration site Surgeon: Halima Vang Anesthesia Type: General (LMA) Operative Notes Findings: The original obstetrical laceration site is starting to granulate, no evidence of necrotic tissue There is a tract at the uppermost portion of the right labia that extends proximally 4 cm cephalad Closure Type: not applicable Specimen(s): none Estimated blood loss (mL): 5 Blood products transfused: none Procedure in detail: After informed consent was obtained, the patient was taken to the operating room where she was placed in the dorsal supine position. After adequate LMA general anesthesia was achieved, she was placed in the dorsal lithotomy position, and prepped and draped in the usual sterile fashion. A time-out was performed. The previous packing had already fallen out. There was a small amount of pus noted at the upper right margin of the labia. This was probed with a hemostat. There was a small gush of pus. The area was irrigated with 500 cc of sterile saline. The Pulsavac was used on the previous incision with 1 L of fluid. The tract in the right labia was packed with half-inch iodoform gauze. Small cleaned soaked in Dakin's was placed over the remainder of the wound. Sponge, lap, instrument counts were correct x2. The patient tolerated the procedure well, and was taken to PACU in stable condition. Complications: none Post-operative Condition: stable Disposition: PACU Plan for aftercare: To the center after recovery
[2024-02-15] MEDS: fentaNYL 100 MCG/2 ML INJ IV ×3 (16:50→17:02)
[2024-02-15] MEDS: hydrOXYzine 50 MG/ML INJ 25 MG IM (16:50)
[2024-02-15] MEDS: OXYCODONE IR 5 MG TABLET PO (16:56)
[2024-02-15] MEDS: KETOROLAC 30 MG/ML VIAL IV ×2 (17:10→23:17)
[2024-02-15] MEDS: LORazepam 2 MG/ML INJ 0.25 MG IV (17:11)
[2024-02-15] MEDS: VANCOMYCIN 1,250 MG/250 ML PIGGYBACK 250 MG IV (17:36)
--- NOTE | 2024-02-15 21:53 | PC.NURSE ---
Nov @ 2130. Patient received into care at 1900, report received from Satish Desouza RN. Patient up to void per self, tony- care done. States tolerated well. Patient taking hs meds per self. States pain 5-6/10 at present which is tolerable for her, aware has PRN meds for same. Denies needing any at present. VS stable. Patient denies additional concerns. Planning to rest, call guillen in reach.
[2024-02-15] MEDS: SODIUM CHLORIDE 0.45% 1,000 ML 30 ML IV (22:01)
[2024-02-15] MEDS: QUETIAPINE 400 MG 400 EACH PO (22:01)
[2024-02-15] MEDS: CARBIDOPA-LEVODOPA 25/100 TABLET 1 EACH PO (22:02)
[2024-02-16] VITALS (11 sets, daily range): BP systolic 107–138; BP diastolic 53–90; PULSE 76–101; RESP 11–18; TEMP 36.4–37.3; O2SAT 94–99
[2024-02-16] MEDS: VANCOMYCIN 1,250 MG/250 ML PIGGYBACK 250 MG IV ×3 (01:12→17:02)
[2024-02-16] MEDS: ACETAMINOPHEN 325 MG TABLET 650 MG PO ×5 (03:19→23:55)
[2024-02-16] MEDS: OXYCODONE IR 5 MG TABLET PO ×2 (03:19→22:59)
--- NOTE | 2024-02-16 04:51 | PC.NURSE ---
Nov @0030. Report given to Ger Palomares RN for handover. Patient resting with eyes closed, partner still awake- reminded him that patient now NPO and to inform her of same if she wakes.
[2024-02-16] MEDS: KETOROLAC 30 MG/ML VIAL IV ×3 (05:04→18:44)
[2024-02-16] MEDS: MORPHINE 2 MG/ML INJ IV ×4 (07:54→20:38)
--- NOTE | 2024-02-16 08:18 | SUR.OPER ---
Lithotomy on padded OR bed, head on pillow, arms secured on padded arm boards at <90 degrees abduction. Legs secured in padded yellow fins stirrups.
--- NOTE | 2024-02-16 08:22 | PC.NURSE ---
0815 - Patient in bed, pumping. Perineal assessment reveals slight edema. Surgery scheduled for 0900, report given to pre-op nurse, patient ready for surgery.
--- NOTE | 2024-02-16 09:14 | P.PN_ITS ---
Subjective Subjective Date Patient Seen: 02/16/24 Time Patient Seen: 08:50 Interval history: Patient reports some increased tenderness yesterday with packing of the tract. Pain is fairly well controlled. We discussed the possibility of opening up the tract today to make the irrigation and packing easier, and obviate the need to go to the operative operating room every day. Patient is open to this possibility. We also discussed getting wound care involved on Sunday. Exam Vital Signs (past 8 hours): - 02/16/24 03:29 02/16/24 07:20 02/16/24 08:52 Temperature 98.2 F 98.5 F 98 F Pulse Rate 82 80 76 Respiratory Rate 18 18 12 Blood Pressure 123/72 107/61 118/77 Pulse Oximetry 98 94 Oxygen Delivery Method Room Air Oxygen Delivery Method Room Air Objective Labs 02/15/24 11:41 02/14/24 06:09 Labs: Laboratory Results - last 24 hr 02/15/24 11:41 WBC 10.4 RBC 3.86 L Hgb 12.2 Hct 36.4 MCV 94.3 MCH 31.7 MCHC 33.7 RDW 14.3 Plt Count 367 Neut % (Auto) 70.0 Lymph % (Auto) 19.2 L Sherman % (Auto) 7.3 Eos % (Auto) 2.8 Baso % (Auto) 0.7 Neut # (Auto) 7300 H Lymph # (Auto) 2000 Sherman # (Auto) 800 Eos # (Auto) 300 Baso # (Auto) 100 PFSH Medical History Psychiatric hospitalization Hypertension (~2021) Hemorrhoid Surgical History Anesthesia History of colonoscopy Family History Mother Hypertension Pre-diabetes Skin cancer Father Hypertension Skin cancer Alcoholism Grandfather Liver cancer Heavy smoker Grandmother COPD (chronic obstructive pulmonary disease) Heavy smoker Grandfather No problems noted. 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[employer]) current occupational exposures/hazards: No special dwain needs: No travel history: over 6 months ago seatbelt use: always helmet use: No (counseled on this matter) water heater temp set < 120 deg: Yes working smoke detector in home: Yes fire extinguisher in home: Yes carbon monox detector in home: Yes firearms in home: Yes firearms unloaded and locked: Yes do you feel safe at home: Yes Smoking Status: Former smoker Tobacco: How many years used: 10 second hand exposure: No alcohol intake: former substance use type: does not use during the past year weight has: other (gained ~90 lb w/ last , lost 50 prior to this one) well-balanced diet: daily or most days daily servings fruits/ve-4 caffeine: Yes (single K-cup coffee in AM) Type(s) of exercise: walking Assessment & Plan Post-op Postoperative Procedures: Procedures Operation Date: 02/14/24 16:15 Actual Procedure Side Surgeon p Exam Under Anesthesia debridment of vaginal wound José Crawley MD Operation Date: 02/15/24 16:00 Actual Procedure Side Surgeon p Incision and Drainage Perineal Wound vagina and eua of rectum Not Applicable Halima Vang MD Operation Date: 02/16/24 09:00 Actual Procedure Side Surgeon p Incision and Drainage Perineal Wound vagina Halima Vang MD Operation Date: 02/17/24 08:00 <No data on this case meets the specified criteria> Postoperative day: 2 Postoperative status narrative: Postop day #2 status post incision, drainage, irrigation, and packing of an infected postoperative laceration site Postoperative plan narrative: We will discuss next steps in postoperative care once we decide in the operating room if we are going to open the tract Time Spent With Patient Time with patient: 15-24 minutes Quality VTE Deep Vein Thrombosis/Pulmonary Embolism Present on Admission: No
--- NOTE | 2024-02-16 09:46 | SUR.OPER ---
Lithotomy on padded OR bed, head on pillow, arms secured on padded arm boards at <90 degrees abduction. Legs secured in padded yellow fins stirrups.
--- NOTE | 2024-02-16 09:46 | SUR.OPER ---
Half inch iodosorb packed into wound about half of product used.
--- NOTE | 2024-02-16 10:21 | PM.GYNOP.1 ---
Operative Date/Time/Diagnoses Date of procedure: 02/16/24 Time of procedure: 10:21 Pre-op diagnosis: MRSA infection of obstetrical laceration site Post-op diagnosis: same Procedure & Clinicians Procedure: Procedures Operation Date: 02/14/24 16:15 Actual Procedure Side Surgeon p Exam Under Anesthesia debridment of vaginal wound José Crawley MD Operation Date: 02/15/24 16:00 Actual Procedure Side Surgeon p Incision and Drainage Perineal Wound vagina and eua of rectum Not Applicable Halima Vang MD Operation Date: 02/16/24 09:00 Actual Procedure Side Surgeon p Incision and Drainage Perineal Wound vagina Halima Vang MD Operation Date: 02/17/24 08:00 <No data on this case meets the specified criteria> Indications: 38 year old with MRSA infection of obstetrical laceration site. Status post I&D, irrigation and packing of wound. Surgeon: Halima Vang Anesthesia Type: General Operative Notes Findings: 4 cm tract into the right labia minora. No necrotic tissue No new purulent material Closure Type: not applicable Specimen(s): none Estimated blood loss (mL): 5 Blood products transfused: none Procedure in detail: informed consent was Obtained. The patient was taken to the operating room where she was placed in the dorsal supine position. After adequate general endotracheal anesthesia was achieved, she was placed in the dorsal lithotomy position, and prepped and draped in the usual sterile fashion. The packing was removed. Using the Pulsavac, the wound was debrided and irrigated. The tract into the right labia minora was probed with a hemostat. A decision was made to open up the tract as it was only about 4 mm deep. This was achieved with the #15 blade. The area of the tract was then cleaned with a Pulsavac. A Bovie was used for hemostasis. The entire area was packed with cleaned that was soaked in Dakin's solution. Hemostasis was achieved. Sponge, lap, and instrument counts were correct x2. The patient tolerated the procedure well, and was taken to PACU i Complications: none Post-operative Condition: stable Disposition: PACU Plan for aftercare: To the Center after recovery
--- NOTE | 2024-02-16 10:51 | PC.NURSE ---
0835 - Patient returned from PACU, report received from PACU nurse. Vitals stable, patient states pain 8/10, will eat lunch and let oxycodone take effect, which was given at 0830 per BUSINESS OFFICE COORDINATOR. Physical assessment unchanged from this morning, perineal exam reveals mild edema, bleeding scant.
--- NOTE | 2024-02-16 10:58 | PC.NURSE ---
1035 - Patient returned from PACU, report received from PACU nurse. 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 Physical assessment unchanged from this morning, perineal exam reveals mild edema, bleeding scant.
[2024-02-16] MEDS: lamoTRIgine 100 MG TABLET 225 MG PO (11:11)
--- NOTE | 2024-02-16 12:09 | PC.NURSE ---
1200 - Patient tearful, states she is tired of being in the hospital, requests additional pain medication as well. Will review medications and come up with a plan for pain management. Patient states her recovery after this surgery feels better. Bleeding scant.
--- NOTE | 2024-02-16 13:43 | PC.NURSE ---
1240 - Patient ambulated independently to restroom. States she has small amount of stool on her pad without realizing she was stooling. Declines any lactulose at this time as she feels she is unable to hold her stool. Patient back to bed on her own. Bleeding scant
[2024-02-16] MEDS: OXYCODONE IR 10 MG TABLET PO ×2 (14:23→18:45)
[2024-02-16] MEDS: LACTATED RINGERS 500 ML 40 ML IV (16:33)
[2024-02-16 16:54] LABS: Estimated Glomerular Filt Rate > 60 mL/min (>60)
[2024-02-16 17:15] LABS: Vancomycin Trough 11.6 ug/mL (10-20)
--- NOTE | 2024-02-16 19:02 | PC.NURSE ---
1900 - Patient in bed, family at bedside. Denies increased bleeding or swelling. States the pain management is going well, feels pain but not as bad as last night. Hemorrhoid pillow given. IV saline locked. Patient denies any needs at this time.
--- NOTE | 2024-02-16 21:00 | PC.NURSE ---
LW IV site accidentally DC by patient. New IV placement in L hand 20g.
[2024-02-17 00:02] VITALS: BP 120/82; PULSE 97; RESP 16; TEMP 36.8
[2024-02-17] MEDS: KETOROLAC 30 MG/ML VIAL IV ×3 (02:55→16:16)
[2024-02-17] MEDS: VANCOMYCIN 1,250 MG/250 ML PIGGYBACK 250 MG IV ×3 (02:56→18:51)
[2024-02-17] MEDS: MORPHINE 2 MG/ML INJ IV ×2 (03:00→13:15)
[2024-02-17 08:16] VITALS: BP 126/81; PULSE 82; RESP 16; TEMP 36.7; O2SAT 97
[2024-02-17] MEDS: ACETAMINOPHEN 325 MG TABLET 650 MG PO ×3 (08:16→20:04)
[2024-02-17] MEDS: lamoTRIgine 100 MG TABLET 225 MG PO (08:16)
[2024-02-17] MEDS: OXYCODONE IR 5 MG TABLET PO ×4 (08:17→22:01)
[2024-02-17] MEDS: LEVOTHYROXINE 75 MCG TABLET 150 MCG PO (08:29)
[2024-02-17] MEDS: LACTULOSE 20 GM/30 ML SOLUTION PO (09:05)
[2024-02-17] MEDS: OXYCODONE IR 10 MG TABLET PO (10:58)
--- NOTE | 2024-02-17 14:39 | PC.NURSE ---
1400 - Provider Taj at bedside, packing changed. Patient tolerated well. POC is to keep patient overnight, will follow up in clinic daily until wound care can be set up. Patient agreeable to plan.
[2024-02-17 16:05] VITALS: BP 131/89; PULSE 75; RESP 16; TEMP 36.9; O2SAT 98
--- NOTE | 2024-02-17 17:19 | PC.NURSE ---
1530 - IV accidentally removed by patient, patient requests u/s guided placement in forearm. ED contacted, ED RN will place. 1630 - ED RN at bedside, IV inserted without difficulty. 1700 - POC discussed with patient, would like to stay on schedule with Tylenol, Toradol and 5mg Oxycodone overnight, advised would like to be woken up for scheduled medication administration. Partner will be home overnight so patient will call for assistance if needed. Plan is to discharge home tomorrow, patient is agreeable to plan. States she feels so much better than this morning.
--- NOTE | 2024-02-17 20:45 | PC.NURSE ---
Spoke with Dr Vang, plan to transition to PO ibuprofen from Toradol. Pt in agreement. Also had long discussion with patient regarding Safe Sleep practices. Pt states she understands but continues to keep baby in bed next to her with fluffy blankets. States when she goes to bed later tonight she will put baby in bassinet.
[2024-02-17] MEDS: CARBIDOPA-LEVODOPA 25/100 TABLET 1 EACH PO (21:15)
[2024-02-17 22:00] VITALS: BP 137/80; PULSE 94; RESP 18; TEMP 36.9; O2SAT 99
[2024-02-17] MEDS: IBUPROFEN 600 MG TABLET PO (22:01)
[2024-02-18] MEDS: ACETAMINOPHEN 325 MG TABLET 650 MG PO ×2 (02:07→09:02)
[2024-02-18] MEDS: OXYCODONE IR 5 MG TABLET PO ×3 (02:07→12:27)
--- NOTE | 2024-02-18 02:14 | PC.NURSE ---
No change from previous physical assessment.
[2024-02-18 03:30] VITALS: BP 105/61; PULSE 89; RESP 16; TEMP 36.6; O2SAT 95
[2024-02-18] MEDS: VANCOMYCIN 1,250 MG/250 ML PIGGYBACK 250 MG IV ×2 (03:31→12:19)
[2024-02-18] MEDS: IBUPROFEN 600 MG TABLET PO ×2 (03:31→12:27)
[2024-02-18] MEDS: LEVOTHYROXINE 75 MCG TABLET 150 MCG PO (06:10)
[2024-02-18] MEDS: PANTOPRAZOLE DR 20 MG TABLET PO (06:10)
--- NOTE | 2024-02-18 08:27 | P.PN_ITS ---
Subjective Subjective Date Patient Seen: 02/17/24 Time Patient Seen: 13:30 Interval history: Patient is a 38-year-old postop day # 3 from an I and D and debridement of a breakdown of an obstetrical laceration site due to MRSA infection. Yesterday I opened a tract in the operating room. Today we will attempt to do a bedside packing change. She is on vancomycin IV. We have pretreated with IV medication prior to the bedside packing change. Exam Vital Signs (past 8 hours): - 02/18/24 03:30 Temperature 98 F Pulse Rate 89 Respiratory Rate 16 Blood Pressure 105/61 Pulse Oximetry 95 Oxygen Delivery Method Room Air Narrative Exam Narrative: Generally: Patient is extremely anxious about doing the procedure at the bedside. Tearful. External genitalia: The packing was moistened and removed without difficulty. A butterfly shaped open area from the labia extending down on the perineal body. [place]. No necrotic tissue. No purulent material. The area was irrigated including the new open area of the tract. Local anesthetic was applied. The wound was then packed with Benedict[place] soaked with Dakin's solution. The patient tolerated the procedure well. Objective Labs 02/15/24 11:41 02/16/24 16:35 [facility] Medical History Psychiatric hospitalization Hypertension (~2021) Hemorrhoid Surgical History Anesthesia History of colonoscopy Family History Mother Hypertension Pre-diabetes Skin cancer Father Hypertension Skin cancer Alcoholism Grandfather Liver cancer Heavy smoker Grandmother COPD (chronic obstructive pulmonary disease) Heavy smoker Grandfather No problems noted. 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[email or web address]) current occupational exposures/hazards: No special dwain needs: No travel history: over 6 months ago seatbelt use: always helmet use: No (counseled on this matter) water heater temp set < 120 deg: Yes working smoke detector in home: Yes fire extinguisher in home: Yes carbon monox detector in home: Yes firearms in home: Yes firearms unloaded and locked: Yes do you feel safe at home: Yes Smoking Status: Former smoker Tobacco: How many years used: 10 second hand exposure: No alcohol intake: former substance use type: does not use during the past year weight has: other (gained ~90 lb w/ last , lost 50 prior to this one) well-balanced diet: daily or most days daily servings fruits/ve-4 caffeine: Yes (single K-cup coffee in AM) Type(s) of exercise: walking Assessment & Plan Post-op Postoperative Procedures: Procedures Operation Date: 02/14/24 16:15 Actual Procedure Side Surgeon p Exam Under Anesthesia debridment of vaginal wound José Crawley MD Operation Date: 02/15/24 16:00 Actual Procedure Side Surgeon p Incision and Drainage Perineal Wound vagina and eua of rectum Not Applicable Halima Vang MD Operation Date: 02/16/24 09:00 Actual Procedure Side Surgeon p Incision and Drainage Perineal Wound vagina Halima Vang MD Operation Date: 02/17/24 08:00 <No data on this case meets the specified criteria> Postoperative day: 3 Postoperative status narrative: Wound is healing very well No signs of new infection Postoperative plan narrative: We will check into wound care at both [facility] and [facility] for care closer to the patient's home We will potentially repack at the bedside tomorrow if we can not get her into wound care in a timely fashion Time Spent With Patient Time with patient: Greater than 35 minutes Quality VTE Deep Vein Thrombosis/Pulmonary Embolism Present on Admission: No
[2024-02-18] MEDS: lamoTRIgine 100 MG TABLET 225 MG PO (09:02)
--- NOTE | 2024-02-18 14:14 | PC.NURSE ---
Patient discharged home at 1410. DC instructions given and reviewed. FU appt made. Refferal to wound care. Wound packed by Taj right before discharge
--- NOTE | 2024-02-24 16:52 | P.DS_ITS ---
History of Present Illness History of Present Illness Date Patient Seen: 02/18/24 Time Patient Seen: 08:30 Chief complaint: extreme pain, gave t-1week Narrative: Patient is a 38-year-old who was admitted on February 13, 2024 for an MRSA infection of her obstetrical laceration site which then caused a breakdown. She was taken to surgery on February 14, 2024 for a debridement and incision and drainage. She had some packing placed. On 02/14 she was taken back to the operating room for a packing change. She was found to have a trapped that was extending up onto the right labia minora. This area was irrigated and debrided and packed as well. On February 16, 2024 she was taken back to the operating room where the tract was opened. That area was irrigated and then the whole area was packed again. On February 17, 2024 we were able to do a bedside packing change with irrigation. Clean with Dakin solution was used for all of the packing changes. She tolerated this well. On February 18, 2024 with her mother and present we also did a bedside packing change. The patient was discharged home on February 18, 2024 to follow-up in the office on February 19, 2024 for a packing change. A referral to the [facility] was made due to convenience for patient. Discharge Providers Provider Date of admission: 02/15/24 12:05 Discharge Date: 02/18/24 Primary care physician: Doctor Joselito MD Discharge provider: Halima Vang MD Summary Hospital Course Discharge Diagnosis: MRSA infection of obstetrical laceration site Incision/Drainage/Debridement of wound Hospital Course: Patient is a 38-year-old who was admitted on February 13, 2024 for an MRSA infection of her obstetrical laceration site which then caused a breakdown. She was taken to surgery on February 14, 2024 for a debridement and incision and drainage. She had some packing placed. On 02/14 she was taken back to the operating room for a packing change. She was found to have a trapped that was extending up onto the right labia minora. This area was irrigated and debrided and packed as well. On February 16, 2024 she was taken back to the operating room where the tract was opened. That area was irrigated and then the whole area was packed again. On February 17, 2024 we were able to do a bedside packing change with irrigation. Clean with Dakin solution was used for all of the packing changes. She tolerated this well. On February 18, 2024 with her mother and present we also did a bedside packing change. The patient was discharged home on February 18, 2024 to follow-up in the office on February 19, 2024 for a packing change. A referral to the [facility] was made due to convenience for patient. Status at Discharge Cognitive/behavioral status at discharge: oriented Functional status at discharge: independent ambulation Overall status at discharge: patient is progressing back to baseline Time Spent with Patient Time spent: Greater than 30 minutes Exam Vital Signs (past 8 hours): Oxygen Delivery Method Room Air Narrative Exam Narrative: Generally: NAD External genitalia: Packing was removed. Area of perineum/vagina was irrigated. Local anesthesia with 10cc of 1% lidocaine were injected. Benedicto moistened with Dakin's was placed into the wound. The patient tolerated the procedure well. Objective Labs 02/15/24 11:41 02/16/24 16:35 [facility] Medical History (Updated 02/21/24 @ 10:39 by Steffi Wallis RN) (spontaneous vaginal delivery) (02/06/24) Psychiatric hospitalization Hemorrhoid Hypertension (~2021) Surgical History (Updated 02/21/24 @ 10:39 by Steffi Wallis RN) History of incision and drainage (02/16/24) History of incision and drainage (02/15/24) History of surgery (02/14/24) Anesthesia History of colonoscopy Family History Mother Hypertension Pre-diabetes Skin cancer Father Hypertension Skin cancer Alcoholism Grandfather Liver cancer Heavy smoker Grandmother COPD (chronic obstructive pulmonary disease) Heavy smoker Grandfather No problems noted. 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[employer]) current occupational exposures/hazards: No special dwain needs: No travel history: over 6 months ago seatbelt use: always helmet use: No (counseled on this matter) water heater temp set < 120 deg: Yes working smoke detector in home: Yes fire extinguisher in home: Yes carbon monox detector in home: Yes firearms in home: Yes firearms unloaded and locked: Yes do you feel safe at home: Yes Smoking Status: Former smoker Tobacco: How many years used: 10 second hand exposure: No alcohol intake: former substance use type: does not use during the past year weight has: other (gained ~90 lb w/ last , lost 50 prior to this one) well-balanced diet: daily or most days daily servings fruits/ve-4 caffeine: Yes (single K-cup coffee in AM) Type(s) of exercise: walking Discharge Assessment & Plan Assessment and Plan Assessment: MRSA infection of obstetrical laceration site S/P I&D and debridement of wound and packing Plan of Treatment: Discharge to home Follow up 1 day for packing change Referral to Wound care made Discharge Plan Discharge Plan Patient Disposition: Home Provider Discharge Comment: Call with fever, chills, or redness or pus see drainage from the wound Discharge orders & Medications Prescriptions: New lactulose 10 gram/15 mL solution 10 g PO DAILY Qty: 237 1RF lidocaine 5 % gel 1 ea topical .every 6 hours Qty: 30 2RF Rx Instructions: Use a small amount on the perineal area as needed for pain Continued fluticasone propionate 250 mcg/actuation blister with device 1 inh inhalation Q12H Qty: 60 2RF Hold Instructions: Home Medication placed on hold at Doctor's office [id number] [Fioricet] 50-300-40 mg capsule 1 cap PO Q8H PRN (Reason: pain) Qty: 5 0RF lamotrigine [Lamictal] 200 mg tablet 200 mg PO DAILY sumatriptan succinate 50 mg tablet 50 mg PO ONCE levothyroxine 150 mcg tablet 150 mcg PO DAILY quetiapine 400 mg tablet extended release 24 hr 400 mg PO DAILY carbidopa-levodopa 25-100 mg tablet 1 tab PO BEDTIME albuterol sulfate 90 mcg/actuation HFA aerosol inhaler 2 puff inhalation Q6H PRN (Reason: Bronchodilation) lamotrigine [Lamictal] 25 mg Tablet 25 mg PO DAILY acetaminophen 325 mg Tablet 650 mg PO Q6HR PRN (Reason: Pain, Mild (1-3)) Qty: 30 0RF ibuprofen 600 mg Tablet 600 mg PO Q6HR PRN (Reason: Pain, Mild (1-3)) Qty: 30 0RF Discontinued clindamycin HCl 300 mg capsule 300 mg PO Q6H Qty: 28 0RF oxycodone 5 mg tablet 5 mg PO Q6H PRN (Reason: pain) Qty: 5 0RF valacyclovir 500 mg tablet 500 mg PO BID pantoprazole 40 mg tablet,delayed release (DR/EC) 40 mg PO DAILY docusate sodium 100 mg Capsule 100 mg PO DAILY Qty: 30 0RF lidocaine 5 % Adhesive Patch,Medicated 1 patch topical DAILY Qty: 30 0RF oxycodone 5 mg capsule 5 mg PO Q6H PRN (Reason: pain ) Qty: 12 0RF No Action oxycodone 5 mg tablet 5 mg PO Q6H PRN (Reason: Pain (Scale Score 4-6)) Qty: 20 0RF Follow up/Referrals: José Crawley MD [Physician] - (Tomorrow 02/18 at 3:[address] Crawley) Diet/Activity/Treatments Diet: Regular Activity: As tolerated Skin/Wound/Dressing Care Report to your healthcare provider any signs of infection, such as:: chills, fever, increased pain, unusual drainage and unusual redness Dressing: Will have changed in the office tomorrow or at [facility] wound clinic Visit Report/Discharge Packet Instructions: DI for Prescription Opioid Use, DI for Incision and Drainage Stand Alone Forms: Patient Portal/API, Stroke Signs & Symptoms Discharge Data Primary Care Provider: Miscellaneous,Doctor [facility] Deep Vein Thrombosis/Pulmonary Embolism Present on Admission: No
== END 2024-02-18 14:10 | disposition home or self-care (01) | DRG 548 ==
LOC: ED 21:23 → AC 23:27 → LABOR 02-14 00:09
PROVIDERS: Obstetrics & Gynecology; Admitting Provider Obstetrics & Gynecology; Emergency Provider Emergency Medicine; Visit Provider Obstetrics & Gynecology
PROC: (CPT 57410; principal; 2024-02-14 16:15)
PROC: 0U9M0ZZ Drainage of Vulva, Open Approach (ICD-10-PCS; principal; 2024-02-15 16:00)
PROC: 0HB9XZZ Excision of Perineum Skin, External Approach (ICD-10-PCS; principal; 2024-02-16 09:00)
DX: O90.1 Disruption of perineal obstetric wound (principal); B95.62 Methicillin resistant Staphylococcus aureus infection as the cause of diseases classified elsewhere; O99.215 Obesity complicating the puerperium; E66.01 Morbid (severe) obesity due to excess calories
CPT/HCPCS: 36415; 72193; 80053; 80202; 81003; 81015; 82565; 82962; 83605; 85025; 86850; 86900; 86901; 87040; 87077; 87086; 87147; 87186; 99284; G0378; J0330; J0696; J1100; J1885; J2060; J2270; J2405; J2704; J3010; J3410; J7050; Q9967

== ENCOUNTER 2024-02-22 09:57 | Day surgery (SDC) | payer OTHER, MEDICAID, SELFPAY ==
[2024-02-14 00:41] VITALS: BMI 37.5
[2024-02-21 10:23] VITALS: BMI 36.8
[2024-02-22 10:23] VITALS: BP 123/79; PULSE 88; RESP 18; TEMP 36.4; O2SAT 97; BMI 36.8
[2024-02-22] MEDS: LACTATED RINGERS 1,000 ML 42 ML IV (10:38)
--- NOTE | 2024-02-22 12:07 | PM.PREOP ---
Pre-operative Note COVID-19 COVID-19 status: Not tested Interval Note History & Physical reviewed/Exam performed by Physician: Yes Changes to H&P: No
[2024-02-22] MEDS: VANCOMYCIN 1,500 MG/300 ML PIGGYBACK 200 MG IV (12:23)
--- NOTE | 2024-02-22 12:33 | SUR.OPER ---
Lithotomy on padded OR bed, head on pillow, arms secured on padded arm boards at <90 degrees abduction. Legs secured in padded yellow fins stirrups.
[2024-02-22] MEDS: SODIUM HYPOCHLORITE 473 ML SOLUTION TOP (12:36)
[2024-02-22] MEDS: SILVER SULFADIAZINE 1% CREAM 25 GM 1 APPLIC TOP (12:43)
--- NOTE | 2024-02-22 12:54 | P.OP_ITS ---
Operative Date/Time/Diagnoses Date of procedure: 02/22/24 Time of procedure: 12:00 Pre-op diagnosis: Partial breakdown, second-degree perineal laceration repair Post-op diagnosis: same Procedure & Clinicians Procedure: Procedures Operation Date: 02/22/24 11:45 Actual Procedure Side Surgeon ISHA Duckworth, secondary closure of perineal laceration José Crawley MD Indications: Patient returns now to the operating when for secondary closure of her second- degree perineal laceration repair following its partial breakdown with infection by MRSA. She has been under undergoing daily dressing changes for the last 4 days and the wound is felt to be of infection free and appropriate for secondary closure at this time. Surgeon: José Crawley Anesthesia Type: General Operative Notes Findings: Following gentle debridement, the granulation bed on both sides of the perineal laceration were healthy, without eschar, and without evidence infection. Skin edges were healthy and minimal erythema exists around the granulating laceration. Closure Type: non-primary (Delayed secondary closure) Specimen(s): none Estimated blood loss (mL): 5 Blood products transfused: none Procedure in detail: With the patient under satisfactory general anesthesia in the modified dorsal lithotomy position, the perineum and vagina were prepped and draped for closure of the perineal laceration. A pre-surgical safety time-out was then taken in accordance with [facility] protocols. The perineum was gently exposed and debrided using a Ray-Fuentes gauze and Dakin's solution. All soft eschar material was removed and there was no evidence of purulent material seen. The previously identified MRSA tract is clean and healing spontaneously. The remainder of the perineal laceration was then reapproximated by careful placement of 0 Monocryl antimicrobial interrupted stitches with excellent reapproximation not only of the skin edges but also the granulating tissue base beneath. At the completion of the procedure there was excellent apposition of the skin edges and no bleeding or surrounding ecchymosis. The procedure was terminated by application of Silvadene cream over the repair site. Patient was awakened from anesthesia and transferred to the PACU for a period of observation and recovery after having tolerated the procedure well. Complications: none Post-operative Condition: stable Disposition: PACU Plan for aftercare: Routine postoperative care with follow-up in 2 weeks or as needed.
[2024-02-22 12:55] VITALS: BP 113/64; PULSE 103; RESP 16; TEMP 36.3; O2SAT 97
[2024-02-22 13:00] VITALS: BP 105/65; PULSE 86; RESP 14; O2SAT 96
[2024-02-22 13:05] VITALS: BP 108/59; PULSE 87; RESP 17; O2SAT 98
[2024-02-22 13:10] VITALS: BP 107/63; PULSE 89; RESP 13; TEMP 36.1; O2SAT 98
[2024-02-22] MEDS: OXYCODONE IR 5 MG TABLET PO ×2 (13:15→13:17)
[2024-02-22 13:20] VITALS: BP 110/69; PULSE 82; RESP 14; TEMP 36.1; O2SAT 98
== END 2024-02-22 13:35 | disposition home or self-care (01) ==
PROVIDERS: Referring Provider Obstetrics & Gynecology; Visit Provider Obstetrics & Gynecology
DX: O90.1 Disruption of perineal obstetric wound (principal)
CPT/HCPCS: 13160; J1100; J2250; J2405; J2704; J3010

== ENCOUNTER 2024-03-13 14:18 | Emergency (ER) | payer OTHER, MEDICAID, SELFPAY ==
[2024-02-14 00:41] VITALS: BMI 37.5
[2024-03-13 14:35] VITALS: BP 121/79; PULSE 90; RESP 18; TEMP 36.3; O2SAT 99; BMI 36.6
--- NOTE | 2024-03-13 15:50 | ED.GENADULT ---
HPI - General Adult General Chief complaint: Vaginal Bleeding Stated complaint: heavy cramping and discharge sent by OB Time Seen by Provider: 03/13/24 15:17 Source: patient Mode of arrival: Ambulatory History of Present Illness HPI narrative: Patient is a G2 now P2 at approximately 5 weeks who is here for evaluation of heavy cramping in her lower abdomen. She did have a vaginal delivery. She did sustain a tear afterwards requiring repair. Towards the end of the she had several abscesses that developed requiring antibiotics. She has had abscesses develop since that time as well. She recently had an incision and drainage. This was done by her director veterinary provider. She was on antibiotics but not currently. She was not feel that there are any new abscesses. But she has developed cramping in her lower abdomen. She was also having clear discharge. No fevers. No vomiting. No chest pain. No shortness of breath. She was sent to the emergency department for an ultrasound to evaluate for retained products. Related Data Home Medications Medication Instructions Recorded Confirmed lamotrigine 200 mg tablet 200 mg PO DAILY 08/17/23 02/22/24 (Lamictal) albuterol sulfate 90 mcg/actuation 2 puff inhalation Q6H PRN 12/27/23 02/22/24 aerosol inhaler Bronchodilation carbidopa 25 mg-levodopa 100 mg 1 tab PO BEDTIME restless leg 12/27/23 02/22/24 tablet levothyroxine 150 mcg tablet 150 mcg PO DAILY 12/27/23 02/22/24 quetiapine 400 mg tablet,extended 400 mg PO DAILY 12/27/23 02/22/24 release 24 hr sumatriptan succinate 50 mg tablet 50 mg PO ONCE 12/27/23 02/22/24 lamotrigine 25 mg tablet (Lamictal) 25 mg PO DAILY 02/05/24 02/22/24 Previous Rx's Medication Instructions Recorded fluticasone propionate 250 1 inh inhalation Q12H #60 ea 01/02/24 mcg/actuation blister powder for inhalation acetaminophen 325 mg tablet 650 mg (2 x 325 mg) PO Q6HR PRN 02/07/24 Pain, Mild (1-3) #30 tabs ibuprofen 600 mg tablet 600 mg PO Q6HR PRN Pain, Mild 02/07/24 (1-3) #30 tabs [id number] 1 cap PO Q8H PRN pain #5 caps 02/08/24 50 mg-300 mg-40 mg capsule (Fioricet) lidocaine 5 % topical gel 1 ea topical .every 6 hours #30 02/18/24 grams gabapentin 300 mg capsule 300 mg PO TID #20 caps 02/25/24 lactulose 10 gram/15 mL oral 10 g (15 mL) PO DAILY #473 mL 02/26/24 solution Allergies Allergy/AdvReac Type Severity Reaction Status Date / Time prochlorperazine Allergy Severe Hallucinati Verified 02/22/24 10:15 [From Compazine] ng hydromorphone [From Dilaudid] Allergy Intermediate rash Verified 02/22/24 10:15 Review of Systems Review of Systems Narrative: See HPI Patient History Medical History (spontaneous vaginal delivery) (02/06/24) Psychiatric hospitalization Hemorrhoid Hypertension (~2021) Surgical History (Updated 02/21/24 @ 10:39 by Steffi Wallis RN) History of incision and drainage (02/16/24) History of incision and drainage (02/15/24) History of surgery (02/14/24) Anesthesia History of colonoscopy Family History Mother Hypertension Pre-diabetes Skin cancer Father Hypertension Skin cancer Alcoholism Grandfather Liver cancer Heavy smoker Grandmother COPD (chronic obstructive pulmonary disease) Heavy smoker Grandfather No problems noted. 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[employer]) current occupational exposures/hazards: No special dwain needs: No travel history: over 6 months ago seatbelt use: always helmet use: No (counseled on this matter) water heater temp set < 120 deg: Yes working smoke detector in home: Yes fire extinguisher in home: Yes carbon monox detector in home: Yes firearms in home: Yes firearms unloaded and locked: Yes do you feel safe at home: Yes Smoking Status: Former smoker Tobacco: How many years used: 10 second hand exposure: No alcohol intake: former substance use type: does not use during the past year weight has: other (gained ~90 lb w/ last , lost 50 prior to this one) well-balanced diet: daily or most days daily servings fruits/ve-4 caffeine: Yes (single K-cup coffee in AM) Type(s) of exercise: walking Smoking Status: Former smoker Exam Initial Vital Signs Initial Vital Signs: Vital Signs Temperature 97.3 F L 03/13/24 14:35 Pulse Rate 90 03/13/24 14:35 Respiratory Rate 18 03/13/24 14:35 Blood Pressure 121/79 03/13/24 14:35 Pulse Oximetry 99 03/13/24 14:35 Oxygen Delivery Method Room Air 03/13/24 14:35 Const General: cooperative, comfortable and No ill appearing HENOR Head: normal to inspection and normocephalic Resp Effort & Inspection: normal respiratory effort Cardio Rate: regular rate GI Inspection: non-distended Palpation: soft, No firm, No guarding, No rigid and tender (Mild tenderness lower abdomen) Neuro General: patient alert, patient awake and moves all extremities Course Orders Ordered: ED Orders 03/13/24 15:51 US pelvic complete Stat 03/13/24 15:55 Basic Metabolic Panel Stat Complete Blood Count AUTO DIFF Stat Vital Signs Vital signs: Vital Signs - 8 hr 03/13/24 14:35 Temperature 97.3 F L Pulse Rate 90 Respiratory Rate 18 Blood Pressure 121/79 Pulse Oximetry 99 Oxygen Delivery Method Room Air Medical Decision Making Lab Data 03/13/24 15:55 03/13/24 15:55 Labs: Lab Results 03/13/24 Range/Units 15:55 WBC 7.7 (4.5-11.0) X10^3/uL RBC 4.42 (4.0-5.2) X10^6/uL Hgb 13.9 (12.0-16.0) g/dL Hct 41.3 (36-46) % MCV 93.3 (80-100) fL MCH 31.5 (26-34) PG MCHC 33.8 (30-36) % RDW 14.2 (11.6-14.8) % Plt Count 318 (150-400) X10^3/uL Neut % (Auto) 53.8 (50-75) % Lymph % (Auto) 31.9 (25-40) % Elliott % (Auto) 8.7 (3-14) % Eos % (Auto) 4.9 H (2-4) % Baso % (Auto) 0.7 (0-2) % Neut # (Auto) 4100 (6401-9291) /uL Lymph # (Auto) 2400 (3331-5797) /uL Elliott # (Auto) 700 (0-900) /uL Eos # (Auto) 400 (0-450) /uL Baso # (Auto) 100 (0-100) /uL Sodium 138 (137-145) mmol/L Potassium 4.2 (3.4-5.1) mmol/L Chloride 102 (98-107) mmol/L Carbon Dioxide 27 (22-32) mmol/L BUN 14 (7-17) mg/dL Creatinine 0.99 (0.52-1.04) mg/dL Estimated GFR > 60 (>60) mL/min BUN/Creatinine Ratio 14.1 (6-22) Glucose 87 (70-100) mg/dL Calcium 9.0 (8.4-10.2) mg/dL Point of Care Testing Test Results Negative Urine Dip Bedside Urine Glucose Negative Bedside Urine Bilirubin - Negative Bedside Urine Ketone - Negative Urine Specific [place] 1.010 Bedside Urine Occult Blood - Negative Bedside Urine pH 6.0 Bedside Urine Protein - Negative Bedside Urine Urobilinogen - Negative Bedside Urine Nitrite - Negative Bedside Urine Leukocytes - Negative Esterase Point of care testing: Point of Care Testing Test Results Negative Urine Dip Bedside Urine Glucose Negative Bedside Urine Bilirubin - Negative Bedside Urine Ketone - Negative Urine Specific [place] 1.010 Bedside Urine Occult Blood - Negative Bedside Urine pH 6.0 Bedside Urine Protein - Negative Bedside Urine Urobilinogen - Negative Bedside Urine Nitrite - Negative Bedside Urine Leukocytes - Negative Esterase Imaging Data US - NATURAL RESOURCE OFFICER: Radiologist's Impression: PROCEDURE: US PELVIC COMPLETE INDICATIONS: Five weeks with pain and bleeding TECHNIQUE: Real-time scanning was performed of the pelvic organs, with image documentation. Additional endovaginal scanning was necessary due to incomplete visualization of the adnexal and endometrial structures by transabdominal scanning. COMPARISON: None. FINDINGS: Uterus: Uterus is anteverted and mildly enlarged in size at 10.7 x 5.3 x 6.2 cm. The myometrium is homogeneous. The endometrium measures 3.7 mm combined thickness. Mild thickening of the lining of the cervix, nonspecific. Ovaries: The right ovary measures 4.0 x 2.0 x 1.7 cm, with a calculated ovarian volume of 6.8 cc. The left ovary measures 3.6 x 1.7 x 2.6 cm, with a calculated ovarian volume of 8.5 cc. The ovaries have a normal sonographic appearance. Greater than 12 follicles can be seen in each ovary. No adnexal masses are seen. Other: No pathologic free abdominal or pelvic fluid. IMPRESSION: Mildly enlarged uterus, consistent with history of . No endometrial thickening. Mild thickening of the lining of the cervix, nonspecific. Greater than 12 sub-5 mm follicular cysts bilaterally which can be associated with polycystic ovarian morphology. Ovaries are otherwise normal in appearance. MDM Narrative Medical decision making narrative: Afebrile no leukocytosis. Ultrasound does not show retained products of conception. Low suspicion for new abscess. Patient was . We discussed the results today. Will have her follow-up with her teacher education director provider. She was given return precautions and follow-up instructions. She expressed understanding and agreement with plan. Discharge Plan Departure Patient Disposition: Home Clinical Impression: Pelvic pain Activity Restrictions/Additional Instructions: Continue to take all of your medications as directed. Keep all of your scheduled medical appointments. Return to the emergency department for new or worsening symptoms. Prescriptions: No Action fluticasone propionate 250 mcg/actuation blister with device 1 inh inhalation Q12H Qty: 60 2RF Hold Instructions: Home Medication placed on hold at Doctor's office [id number] [Fioricet] 50-300-40 mg capsule 1 cap PO Q8H PRN (Reason: pain) Qty: 5 0RF gabapentin 300 mg capsule 300 mg PO TID Qty: 20 0RF lamotrigine [Lamictal] 200 mg tablet 200 mg PO DAILY sumatriptan succinate 50 mg tablet 50 mg PO ONCE levothyroxine 150 mcg tablet 150 mcg PO DAILY quetiapine 400 mg tablet extended release 24 hr 400 mg PO DAILY carbidopa-levodopa 25-100 mg tablet 1 tab PO BEDTIME albuterol sulfate 90 mcg/actuation HFA aerosol inhaler 2 puff inhalation Q6H PRN (Reason: Bronchodilation) lactulose 10 gram/15 mL solution 10 g PO DAILY Qty: 473 2RF lamotrigine [Lamictal] 25 mg Tablet 25 mg PO DAILY acetaminophen 325 mg Tablet 650 mg PO Q6HR PRN (Reason: Pain, Mild (1-3)) Qty: 30 0RF ibuprofen 600 mg Tablet 600 mg PO Q6HR PRN (Reason: Pain, Mild (1-3)) Qty: 30 0RF lidocaine 5 % gel 1 ea topical .every 6 hours Qty: 30 2RF Rx Instructions: Use a small amount on the perineal area as needed for pain Referrals: Miscellaneous,Doctor, MD [Primary Care Provider] - Stand Alone Forms: Patient Portal/API/Survey
--- NOTE | 2024-03-13 15:51 | DI.US.S_ITS ---
PROCEDURE: US PELVIC COMPLETE INDICATIONS: Five weeks with pain and bleeding TECHNIQUE: Real-time scanning was performed of the pelvic organs, with image documentation. Additional endovaginal scanning was necessary due to incomplete visualization of the adnexal and endometrial structures by transabdominal scanning. COMPARISON: None. FINDINGS: Uterus: Uterus is anteverted and mildly enlarged in size at 10.7 x 5.3 x 6.2 cm. The myometrium is homogeneous. The endometrium measures 3.7 mm combined thickness. Mild thickening of the lining of the cervix, nonspecific. Ovaries: The right ovary measures 4.0 x 2.0 x 1.7 cm, with a calculated ovarian volume of 6.8 cc. The left ovary measures 3.6 x 1.7 x 2.6 cm, with a calculated ovarian volume of 8.5 cc. The ovaries have a normal sonographic appearance. Greater than 12 follicles can be seen in each ovary. No adnexal masses are seen. Other: No pathologic free abdominal or pelvic fluid. IMPRESSION: Mildly enlarged uterus, consistent with history of . No endometrial thickening. Mild thickening of the lining of the cervix, nonspecific. Greater than 12 sub-5 mm follicular cysts bilaterally which can be associated with polycystic ovarian morphology. Ovaries are otherwise normal in appearance. We strive to produce accurate, complete, and clear reports of imaging services. To assist us in improving patient care, this report was composed using standard report templates and voice recognition software. Therefore, it may contain abnormal punctuation, insertions and/or omissions. Occasional wrong-word or sound-alike substitutions may occur. Though we review the report and make efforts to correct it, we do recommend that the report be read carefully in proper context to recognize any text inaccuracies. Dictated by: Nasir Russell M.D. on 03/13/2024 at 16:45 Approved by: Nasir Russell M.D. on 03/13/2024 at 16:48
[2024-03-13 16:08] LABS: Add Manual Diff / Slide Review NO; Basophils Absolute Auto 100 /uL (0-100); Basophils Percent Auto 0.7 % (0-2); Eosinophils Absolute Auto 400 /uL (0-450); Eosinophils Percent Auto 4.9 % (2-4); Hematocrit 41.3 % (36-46); Hemoglobin 13.9 g/dL (12.0-16.0); Lymphocytes Absolute Auto 2400 /uL (1100-4500); Lymphocytes Percent Auto 31.9 % (25-40); Mean Corpuscular HGB Conc 33.8 % (30-36); Mean Corpuscular Hemoglobin 31.5 PG (26-34); Mean Corpuscular Volume 93.3 fL (80-100); Monocytes Absolute Auto 700 /uL (0-900); Monocytes Percent Auto 8.7 % (3-14); Neutrophils Absolute Auto 4100 /uL (1500-7000); Neutrophils Percent Auto 53.8 % (50-75); Platelet Count 318 X10^3/uL (150-400); Red Blood Cell Count 4.42 X10^6/uL (4.0-5.2); Red Cell Distribution Width 14.2 % (11.6-14.8); White Blood Cell Count 7.7 X10^3/uL (4.5-11.0)
[2024-03-13 16:18] LABS: BUN Creatinine Ratio 14.1 (6-22); Blood Urea Nitrogen 14 mg/dL (7-17); Carbon Dioxide 27 mmol/L (22-32); Chloride 102 mmol/L (98-107); Estimated Glomerular Filt Rate > 60 mL/min (>60); Glucose 87 mg/dL (70-100); HEMOLYSIS < 15 (0-50); Potassium 4.2 mmol/L (3.4-5.1); Sodium 138 mmol/L (137-145)
[2024-03-13 17:43] VITALS: PULSE 72; RESP 18; O2SAT 98
== END 2024-03-13 17:44 | disposition home or self-care (01) ==
PROVIDERS: Emergency Provider Emergency Medicine
DX: R10.2 Pelvic and perineal pain (principal)
CPT/HCPCS: 76830; 76856; 80048; 81003; 81025; 85025; 99282; 99284